=== PATIENT | female | born 1985 | race Caucasian/White ===

== ENCOUNTER 2018-01-11 16:16 | Outpatient (CLI) | payer MEDICARE ==
--- NOTE | 2018-01-11 17:51 | RAD ---
RADIOGRAPH LUMBAR SPINE 4 VIEWS: 01/11/18 HISTORY: 32-year-old female with M54.16 lumbar radiculopathy. COMPARISON: 04/28/16 TECHNIQUE: Standing AP, and three standing lateral views in flexion, extension, and neutral. FINDINGS: There are transitional levels at the thoracolumbar junction and lumbosacral junction. Review of prior CTA of the chest demonstrates that the last paired ribs are hypoplastic T12 ribs. Inferior to that l evel, there are four standard lumbar type vertebrae, followed by a sacralized L5 that has bilaterally enlarged (alarized) transverse processes, that are fused with the bilateral S1 sacral alae. There is a grade I anterolisthesis of L4 on L5 stabilized with bilateral pedicle screws. There are tiny metal lic markers for interbody graft at the moderately narrowed L4-5 disc space. There is a midline evangelista ctomy defect at L4-5. There is no instability between flexion and extension. The L5-S1 disc space is hypoplastic. The rest of the disc spaces are maintained. There is no scoliosis. The disc space narrow ing at L4-5 is new since the previous study of 04/28/16. The small amount of bilateral onlay bone chip s have now fused with each other, but they not have fused with the adjacent posterior elements. IMPRESSION: 1. Transitional levels at the thoracolumbar junction (bilaterally hypoplastic T12 ribs) and lumb osacral junction (sacralized L5). 2. Grade I spondylolisthesis at L4-5. 3. Status post laminectomy, posterior fusion with bilateral pedicle screws, and interbody cage ( without ankylosis), at L4-5. MARIANELA [] POS: [facility]
== END 2018-01-11 16:17 | disposition home or self-care (01) ==
LOC: TBSIIMAG 16:16
PROVIDERS: ATTEND Neurological Surgery
DX: M54.16 Radiculopathy, lumbar region (principal); M43.16 Spondylolisthesis, lumbar region; Z98.1 Arthrodesis status; Z98.890 Other specified postprocedural states
CPT/HCPCS: 72110

== ENCOUNTER 2018-07-22 01:51 | Emergency (ER) | payer MEDICARE ==
[2018-07-22 03:31] LABS: #Basophils 0.1 thou/uL (0.0-0.2); #Eosinphils 0.2 thou/uL (0.0-0.7); #Lymphocytes 1.8 thou/uL (1.20-3.40); #Monocytes 0.9 thou/uL (0.11-0.59); #Neutrophils 6.6 thou/uL (1.40-6.50); %Basophils 0.6 % (0.0-1.0); %Eosinophils 2.3 % (0.0-10.0); %Lymphocytes 19.2 % (21.0-51.0); %Monocytes 9.5 % (0.0-10.0); %Neutrophils 68.4 % (42.0-75.0); Hemoglobin 13.6 g/dL (12.0-16.0); Mean Corpuscular HGB CONC 32.7 g/dL (32.0-36.0); Mean Corpuscular Hemoglobin 30.8 pg (27.0-31.0); Mean Corpuscular Volume 94.1 fL (78.0-98.0); Platelet Count 224 thou/uL (130-400); RBC Distribution Width 11.1 % (11.5-14.5); White Blood Cell (WBC) Count 9.6 thou/uL (4.8-10.8)
[2018-07-22 03:36] LABS: BHCG - Serum Negative (NEGATIVE); Pregs Control Background? CLEAR/WHITE (CLR/WHITE); Pregs Control Bar Appear? YES (CONTROL BAR)
[2018-07-22 03:44] LABS: Bilirubin Negative (Negative); Blood, Urine Negative (Negative); Clarity TURBID (Clear); Glucose, Urine (Dipstick) Negative (Negative); Leukocyte Negative (Negative); Nitrite Negative (Negative); Protein, Urine (Dipstick) Negative (Neg-Trace); Specific Gravity, Urine 1.015 (1.002-1.036); Urobilinogen 0.2 mg/dL (0.2-1.0)
[2018-07-22 03:52] LABS: ALT (SGPT) 27 U/L (8-55); AST (SGOT) 22 U/L (5-34); Albumin 4.5 g/dL (3.5-5.0); Alkaline Phosphatase 45 U/L (40-150); Anion Gap 10 mmol/L (10-20); BUN (Urea Nitrogen) 16 mg/dL (7.0-18.7); Bilirubin, Total 0.5 mg/dL (0.2-1.2); Calc. Creatinine Clearance 0 mL/min (70-130); Carbon Dioxide 22 mmol/L (22-29); Chloride 111 mmol/L (98-107); Estimated GFR-MDRD Greater than 90; Globulin 3.6 g/dL (2.4-3.5); Glucose 84 mg/dL (70-105); Potassium 3.7 mmol/L (3.5-5.1); Protein, Total 8.1 g/dL (6.0-8.3); Sodium 139 mmol/L (136-145)
[2018-07-22] MEDS ORDERED: Ketorolac Tromethamine 30 MG/ML VIAL ONE (04:10)
[2018-07-22] MEDS ORDERED: Lorazepam 2 MG/ML VIAL ONE (04:29)
[2018-07-22] MEDS ORDERED: Morphine 4 MG/ML VIAL ONE (04:29)
--- NOTE | 2018-07-22 08:43 | CT ---
PRELIMINARY REPORT/[facility]/EMERGENTY AFTER-HOURS PROCEDURE CT Maxillofacial With Intravenous Contrast EXAM DATE/TIME: 07/22/2018 3:54 AM CLINICAL HISTORY: 32 years old, female; Pain; Jaw pain; Patient HX: Eval for possible abscess; PT reports she has saliv abena stones x 2 weeks but has gotten to the point that she cant move her face and pain is worse when w alking. States she has had them in the past and able to get them to come out on their own but this time she can not. TECHNIQUE: Axial computed tomography images of the face with intravenous contrast. Coronal and sagittal reformatted images were created and reviewed. COMPARISON: No relevant prior studies available. FINDINGS: Bones/joints: No acute fracture. Soft tissues: Unremarkable. No fluid collection identified. Orbits: No acute intraorbital abnormality. Sinuses: Unremarkable. Submandibular/Parotid glands: The left parotid gland is slightly enlarged and edematous appearing com pared to the right. There are multiple tiny low-attenuation lesions in the left parotid gland, larges t measuring 6 mm and fluid density without appreciable peripheral enhancement. The right parotid gland and submandibular glands are unremarkable. No stone or ductal dilatation is appre ciated. IMPRESSION: No salivary stone or ductal dilatation is identified. The left parotid gland is slightly enlarged and edematous-appearing compared to the right which may represent parotiditis. Small nonspecific low att enuation lesions are noted in the left parotid gland. No peripherally enhancing fluid collection is identified to indicate abscess. Thank you for allowing us to participate in the care of your patient. Dictated and Authenticated by: Rolando Leong MD 07/22/2018 4:23 AM Central Time ([place] & [place]) CT FACE WITH IV CONTRAST: Date: 07-22-18 PERFORMED ON EMERGENCY BASIS AT 0357 HOURS History: Facial pain. Salivary stones. Comparison: Prior exams on 04-17-17, 07-12-16 FINDINGS: I agree with the preliminary report by Dr. Leong from [facility]. Left parotid gland is enlarg ed and somewhat edematous with multiple small fluid density collections possibly representing cysts o r even small abscess. No obstructing stone is reliably demonstrated. The abnormal appearance of the l eft parotid gland has progressed significantly since the prior CT exams. Code QA POS: [facility]
[2018-07-22] MEDS ORDERED: ISOVUE-370 76%-LOCM 1 ML ONE (15:01)
[2018-07-22] MEDS ORDERED: Ondansetron PF 4 MG/2 ML Vial IVP PRN (19:48)
[2018-07-22] MEDS ORDERED: Acetaminophen/Codeine 30-300mg Tablet PO PRN (19:48)
[2018-07-22] MEDS ORDERED: Sodium Chloride 0.9% 1,000 ML IV SCH (19:48)
[2018-07-22] MEDS ORDERED: Guaifenesin DM 100-10/5 ML UDCUP PO PRN (19:48)
[2018-07-22] MEDS ORDERED: HYDROcodone/Acetaminophen 5/325 mg Tablet PO PRN (19:48)
[2018-07-22] MEDS ORDERED: Senokot S 8.6-50 MG TAB PO PRN (19:48)
[2018-07-22] MEDS ORDERED: Acetaminophen 325 MG TAB PO PRN (19:48)
[2018-07-22] MEDS ORDERED: Montelukast Sodium 10 mg Tablet PO SCH (21:00)
[2018-07-22] MEDS ORDERED: Famotidine 20 MG TAB PO SCH (21:00)
[2018-07-22] MEDS ORDERED: clonazePAM 0.5 MG TAB PO SCH (21:00)
[2018-07-22] MEDS ORDERED: Topiramate 100 MG TAB PO SCH (21:00)
[2018-07-22] MEDS ORDERED: Vancomycin HCl 1 GM in Premix Bag 1 BAG IVPB SCH (21:00)
[2018-07-22] MEDS ORDERED: Lacosamide 50 mg Tablet PO SCH (21:00)
[2018-07-22] MEDS ORDERED: Clindamycin/D5W 300 MG/50 ML BAG IVPB SCH (23:59)
[2018-07-23] MEDS ORDERED: Enoxaparin Sodium 30 MG/0.3 ML SYRINGE SC SCH (09:00)
[2018-07-23] MEDS ORDERED: Levothyroxine Sodium 75 MCG TAB PO SCH (09:00)
[2018-07-23] MEDS ORDERED: FLUoxetine HCl 20 MG CAP PO SCH (09:00)
== END 2018-07-22 05:26 | disposition home or self-care (01) ==
LOC: ERS 01:51
DX: R51 Headache (principal); G40.909 Epilepsy, unspecified, not intractable, without status epilepticus; E03.9 Hypothyroidism, unspecified; F41.9 Anxiety disorder, unspecified; F32.9 Major depressive disorder, single episode, unspecified; Z79.899 Other long term (current) drug therapy
CPT/HCPCS: 70487; 80053; 81003; 84703; 85025; J1885; J2060; J2270; J3490

== ENCOUNTER 2018-07-22 15:27 | Inpatient (IN) | payer MEDICARE ==
[2018-07-22] MEDS ORDERED: Morphine 4 MG/ML VIAL ONE (17:18)
[2018-07-22 17:19] LABS: #Eosinphils 0.1 thou/uL (0.0-0.7); #Lymphocytes 1.2 thou/uL (1.20-3.40); #Monocytes 0.8 thou/uL (0.11-0.59); %Basophils 0.3 % (0.0-1.0); %Eosinophils 1.3 % (0.0-10.0); %Lymphocytes 14.8 % (21.0-51.0); %Monocytes 9.5 % (0.0-10.0); %Neutrophils 74.2 % (42.0-75.0); Hemoglobin 11.5 g/dL (12.0-16.0); Mean Corpuscular HGB CONC 32.3 g/dL (32.0-36.0); Mean Corpuscular Hemoglobin 30.3 pg (27.0-31.0); Mean Corpuscular Volume 93.8 fL (78.0-98.0); Mean Platelet Volume 8.1 fL (7.4-10.4); Platelet Count 199 thou/uL (130-400); Red Blood Cell (RBC) Count 3.78 mill/uL (4.20-5.40)
[2018-07-22 17:28] LABS: BHCG - Serum Negative (NEGATIVE); Pregs Control Background? CLEAR/WHITE (CLR/WHITE); Pregs Control Bar Appear? YES (CONTROL BAR)
[2018-07-22 17:30] LABS: ALT (SGPT) 155 U/L (8-55); AST (SGOT) 138 U/L (5-34); Albumin 3.7 g/dL (3.5-5.0); Alkaline Phosphatase 48 U/L (40-150); Anion Gap 8 mmol/L (10-20); BUN (Urea Nitrogen) 10 mg/dL (7.0-18.7); Bilirubin, Total 0.3 mg/dL (0.2-1.2); Calc. Creatinine Clearance 0 mL/min (70-130); Calcium 9.1 mg/dL (7.8-10.44); Carbon Dioxide 21 mmol/L (22-29); Chloride 114 mmol/L (98-107); Estimated GFR-MDRD Greater than 90; Globulin 2.9 g/dL (2.4-3.5); Glucose 91 mg/dL (70-105); Potassium 3.9 mmol/L (3.5-5.1); Protein, Total 6.6 g/dL (6.0-8.3); Sodium 139 mmol/L (136-145)
[2018-07-22] MEDS ORDERED: Vancomycin HCl 750 MG in Sodium Chloride 0.9% 250 ML 250 ML IVPB SCH (18:00)
[2018-07-22] MEDS ORDERED: Clindamycin/D5W 600 MG in Premix Bag 1 BAG IVPB SCH (18:00)
[2018-07-22] MEDS ORDERED: Acetaminophen 325 MG TAB PO PRN ×2 (19:37→22:12)
[2018-07-22] MEDS ORDERED: Ondansetron PF 4 MG/2 ML Vial IVP PRN ×2 (19:37→22:11)
[2018-07-22] MEDS ORDERED: Ondansetron ODT 4 MG TAB SL PRN (19:37)
[2018-07-22] MEDS ORDERED: diphenhydrAMINE 50 MG/ML VIAL IVP PRN (19:39)
[2018-07-22] MEDS ORDERED: diphenhydrAMINE 50 MG/ML VIAL IVP SCH (19:45)
[2018-07-22 20:07] VITALS: BMI 16.7
[2018-07-22] MEDS: Famotidine/PF 20 mg/2ml Vial SLOW IVP SCH (21:37)
[2018-07-22] MEDS ORDERED: Guaifenesin DM 100-10/5 ML UDCUP PO PRN (22:08)
[2018-07-22] MEDS ORDERED: Senokot 8.6 MG TAB PO PRN (22:11)
[2018-07-22] MEDS ORDERED: clonazePAM 1 MG TAB PO SCH (22:15)
[2018-07-22] MEDS ORDERED: Montelukast Sodium 10 mg Tablet PO SCH (22:15)
[2018-07-22] MEDS ORDERED: Lacosamide 50 mg Tablet PO SCH (22:15)
[2018-07-22] MEDS ORDERED: Famotidine 20 MG TAB PO SCH (22:30)
[2018-07-22] MEDS ORDERED: Topiramate 100 MG TAB PO SCH ×2 (22:30)
[2018-07-22] MEDS: Acetaminophen/Codeine 30-300mg Tablet PO PRN (22:47)
[2018-07-22] MEDS: Sodium Chloride 0.9% 1,000 ML IV SCH (22:50)
[2018-07-23] MEDS: Clindamycin/D5W 300 MG in Premix Bag 1 BAG IVPB SCH ×4 (00:55→17:51)
--- NOTE | 2018-07-23 04:20 | HP ---
REASON FOR ADMISSION: Left parotitis. HISTORY OF PRESENT ILLNESS: The patient gives history of swelling in the left parotid area from the last two weeks. This has been progressively getting worse and has become painful. She in fact came to emergency room early in the morning. She has had a CAT scan done and was sent home after pain medications and antibiotics. The patient could not tolerate the pain and came back to the emergency room. She also mentions that her swelling has gotten worse. She feels like a Q-tip is stuck in her ear. She also mentions that she has had history of salivary gland stones and has been advised to drink/chew on lemon and drink lemon juice to help with the secretion from the salivary glands. The patient tried all those home remedies at home and this has not helped. She also tried some heating pads which has not helped her as well. The patient in fact states that she got morphine, Ativan, and Toradol, all of which wore off and the pain got worse after she went home. 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 Daryl disease, tonsillectomy, adenoidectomy, cholecystectomy, tubal ligation, spinal fusion surgery for L4-5 in 2016. Partial hysterectomy, lithotripsy. CURRENT MEDICATIONS: The patient is on Synthroid 75 mcg p.o. daily, Vimpat 100 mg p.o. twice daily, topiramate 200 mg p.o. twice daily, Singulair 10 mg p.o. daily, Klonopin 1 mg p.o. at bedtime, fluoxetine 20 mg p.o. daily. ALLERGIES: Patient has got multiple allergies including CEPHALOSPORINS, DEXAMETHASONE, DILANTIN, KEPPRA, LATEX, PENICILLIN, SULFA. PERSONAL HISTORY: Does not abuse alcohol or drugs. No history of smoking. FAMILY HISTORY: Mother has history of hypertension and is a prediabetic. She does not know much about her biological father. CODE STATUS: FULL. Power of corporate attorney is her stepdad Mr. Emre Griffin. REVIEW OF SYSTEMS: The following complete review of systems was negative, unless otherwise mentioned in the HPI or below: Constitutional: Weight loss or gain, ability to conduct usual activities. Skin: Rash, itching. Eyes: Double vision, pain. ENT/Mouth: Nose bleeding, neck stiffness, pain, tenderness. Cardiovascular: Palpitations, dyspnea on exertion, orthopnea. Respiratory: Shortness of breath, wheezing, cough, hemoptysis, fever or night sweats. Gastrointestinal: Poor appetite, abdominal pain, heartburn, nausea, vomiting, constipation, or diarrhea. Genitourinary: Urgency, frequency, dysuria, nocturia. Musculoskeletal: Pain, swelling. Neurologic/Psychiatric: Anxiety, depression. Allergy/Immunologic: Skin rash, bleeding tendency. PHYSICAL EXAMINATION: GENERAL: The patient is a 32-year-old female who is currently not in any acute distress. VITAL SIGNS: Blood pressure 102/74, pulse 88 per minute, respiratory rate 16 per minute, temperature 99.2 degrees Fahrenheit, saturating 100% on room air. FACE AND NECK: Supple, no elevated JVD. Patient has left parotid area edema and is extremely tender to touch. No obvious boggy mass or drainage seen. HEENT: Eyes: Extraocular muscles intact. Pupils reacting to light. Oral cavity mucous membranes are dry. CARDIOVASCULAR: S1, S2 heard. Regular rhythm. RESPIRATORY: Air entry 2+ bilateral. No rales or rhonchi. ABDOMEN: Soft, bowel sounds heard. No tenderness, rigidity, or guarding. EXTREMITIES: No peripheral edema or calf tenderness. VASCULAR SYSTEM: Peripheral pulses 2+ bilateral. No ischemic ulcerations or gangrene. CENTRAL NERVOUS SYSTEM: No gross focal deficits noted. Patient is alert, awake , oriented well. PSYCHIATRIC: The patient's mood is euthymic. No hallucinations or delusions. LABORATORY AND X-RAY FINDINGS: White count of 8, H&H 11 and 35, platelet count 199 with 74% neutrophils. Serum bicarbonate 21, BUN 10, creatinine 0.5, AST 138 , ALT 155, total bilirubin 0.3, alkaline phosphatase is 48. Serum test is negative. Facial bone CAT scan done shows no salivary stone or ductal dilatation, left parotid gland is slightly enlarged and edematous, may represent parotitis. No peripherally enhancing fluid collection is identified to indicate abscess. Patient also has multiple small fluid density collections , possibly representing cysts or even small abscess. CLINICAL IMPRESSION AND PLAN: The patient will be admitted to medical floor for left parotitis. She will be on vancomycin and clindamycin. Morphine p.r.n. for pain. We will also place her on Motrin 400 mg p.o. 3 times daily. We will continue her home dose of Vimpat, topiramate, Synthroid, Singulair, Klonopin, and fluoxetine as before. We will consult Dr. Adair Beebe who is production control clerk for ENT. [facility]
[2018-07-23] MEDS: Acetaminophen/Codeine 30-300mg Tablet PO PRN (04:24)
[2018-07-23 04:59] LABS: #Eosinphils 0.1 thou/uL (0.0-0.7); #Lymphocytes 1.6 thou/uL (1.20-3.40); #Monocytes 0.8 thou/uL (0.11-0.59); #Neutrophils 3.2 thou/uL (1.40-6.50); %Basophils 0.7 % (0.0-1.0); %Eosinophils 1.9 % (0.0-10.0); %Lymphocytes 27.6 % (21.0-51.0); %Monocytes 13.4 % (0.0-10.0); %Neutrophils 56.4 % (42.0-75.0); Hemoglobin 10.9 g/dL (12.0-16.0); Mean Corpuscular HGB CONC 31.9 g/dL (32.0-36.0); Mean Corpuscular Hemoglobin 30.1 pg (27.0-31.0); Mean Corpuscular Volume 94.6 fL (78.0-98.0); Mean Platelet Volume 8.2 fL (7.4-10.4); Platelet Count 184 thou/uL (130-400); Red Blood Cell (RBC) Count 3.62 mill/uL (4.20-5.40); White Blood Cell (WBC) Count 5.7 thou/uL (4.8-10.8)
[2018-07-23 05:03] LABS: Anion Gap 7 mmol/L (10-20); BUN (Urea Nitrogen) 8 mg/dL (7.0-18.7); Calc. Creatinine Clearance 103 mL/min (70-130); Calcium 9.1 mg/dL (7.8-10.44); Carbon Dioxide 19 mmol/L (22-29); Chloride 114 mmol/L (98-107); Estimated GFR-MDRD Greater than 90; Glucose 66 mg/dL (70-105); Potassium 3.6 mmol/L (3.5-5.1); Sodium 136 mmol/L (136-145)
[2018-07-23] MEDS: Morphine 4 MG/ML VIAL SLOW IVP PRN ×4 (05:31→20:43)
[2018-07-23] MEDS ORDERED: Levothyroxine Sodium 75 MCG TAB PO SCH (06:00)
[2018-07-23] MEDS: Famotidine 20 MG TAB PO SCH ×2 (08:58→20:41)
[2018-07-23] MEDS: Enoxaparin Sodium 30 MG/0.3 ML SYRINGE SC SCH (08:58)
[2018-07-23] MEDS: Famotidine/PF 20 mg/2ml Vial SLOW IVP SCH (08:59)
[2018-07-23] MEDS ORDERED: FLUoxetine HCl 20 MG CAP PO SCH (09:00)
[2018-07-23] MEDS: Topiramate 100 MG TAB PO SCH ×2 (09:01→20:42)
[2018-07-23] MEDS: Lacosamide 50 mg Tablet PO SCH ×2 (09:36→20:55)
--- NOTE | 2018-07-23 11:09 | PDOC.PN ---
- Subjective Encounter Start Date: 07/23/18 Encounter Start Time: 11:07 Subjective: left facial pain persists - Objective Resuscitation Status: Resuscitation Status FULL:Full Resuscitation MAR Reviewed: Yes Vital Signs & Weight: Vital Signs (12 hours) Temp Pulse Resp BP Pulse Ox 07/23/18 08:00 98.0 F 83 16 101/56 L 100 07/23/18 04:00 98.4 F 87 16 97/55 L 97 07/22/18 23:27 99.3 F 82 16 90/55 L 96 Weight Weight 94 lb 4 oz I&O: 07/22/18 07/23/18 07/24/18 06:59 06:59 06:59 Intake Total 440 Balance 440 Result Diagrams: 07/23/18 04:17 07/23/18 04:17 Phys Exam - Physical Examination 3cm indurated L parotid Respiratory: no wheezing Cardiovascular: RRR, no significant murmur Gastrointestinal: soft, positive bowel sounds Musculoskeletal: no edema Dx/Plan (1) Acute parotitis Code(s): K11.21 - ACUTE SIALOADENITIS Status: Acute (2) Hypothyroidism Code(s): E03.9 - HYPOTHYROIDISM, UNSPECIFIED Status: Acute (3) Seizure disorder Code(s): G40.909 - EPILEPSY, UNSP, NOT INTRACTABLE, WITHOUT STATUS EPILEPTICUS Status: Chronic - Plan cont iv antibx pending ENT consultation -: selected home meds * .
[2018-07-23] MEDS: Ketorolac Tromethamine 30 MG/ML VIAL IVP PRN (18:31)
[2018-07-23] MEDS: Gabapentin 300 MG CAP PO SCH (20:41)
[2018-07-23] MEDS: Lorazepam 1 MG TAB PO SCH (20:42)
[2018-07-23] MEDS ORDERED: Lacosamide 50 mg Tablet PO SCH (21:00)
[2018-07-23] MEDS ORDERED: clonazePAM 1 MG TAB PO SCH (21:00)
[2018-07-23] MEDS ORDERED: Topiramate 100 MG TAB PO SCH (21:00)
[2018-07-23] MEDS ORDERED: tiZANidine HCl 4 MG TAB PO PRN (21:00)
[2018-07-23] MEDS ORDERED: Montelukast Sodium 10 mg Tablet PO SCH (21:00)
[2018-07-23] MEDS ORDERED: Gabapentin 300 MG CAP PO SCH (21:00)
[2018-07-24] MEDS: Clindamycin/D5W 300 MG in Premix Bag 1 BAG IVPB SCH ×3 (00:24→12:30)
[2018-07-24] MEDS: Morphine 4 MG/ML VIAL SLOW IVP PRN ×3 (00:53→10:25)
[2018-07-24] MEDS: Sodium Chloride 0.9% 1,000 ML IV SCH (00:54)
[2018-07-24] MEDS: HYDROcodone/Acetaminophen 5/325 mg Tablet PO PRN ×2 (04:23→09:09)
[2018-07-24] MEDS: Ketorolac Tromethamine 30 MG/ML VIAL IVP PRN ×2 (04:29→12:53)
[2018-07-24 05:08] LABS: #Eosinphils 0.1 thou/uL (0.0-0.7); #Lymphocytes 1.7 thou/uL (1.20-3.40); #Monocytes 0.8 thou/uL (0.11-0.59); #Neutrophils 3.1 thou/uL (1.40-6.50); %Basophils 0.6 % (0.0-1.0); %Eosinophils 2.4 % (0.0-10.0); %Lymphocytes 29.3 % (21.0-51.0); %Neutrophils 54.7 % (42.0-75.0); Hemoglobin 10.8 g/dL (12.0-16.0); Mean Corpuscular HGB CONC 32.3 g/dL (32.0-36.0); Mean Corpuscular Hemoglobin 30.4 pg (27.0-31.0); Mean Corpuscular Volume 94.2 fL (78.0-98.0); Mean Platelet Volume 7.9 fL (7.4-10.4); Platelet Count 188 thou/uL (130-400); RBC Distribution Width 10.9 % (11.5-14.5); Red Blood Cell (RBC) Count 3.54 mill/uL (4.20-5.40); White Blood Cell (WBC) Count 5.8 thou/uL (4.8-10.8)
[2018-07-24 05:23] LABS: Anion Gap 9 mmol/L (10-20); BUN (Urea Nitrogen) 9 mg/dL (7.0-18.7); Calc. Creatinine Clearance 96 mL/min (70-130); Carbon Dioxide 17 mmol/L (22-29); Chloride 116 mmol/L (98-107); Estimated GFR-MDRD Greater than 90; Glucose 85 mg/dL (70-105); Potassium 3.9 mmol/L (3.5-5.1); Sodium 138 mmol/L (136-145)
[2018-07-24] MEDS ORDERED: Levothyroxine Sodium 75 MCG TAB PO SCH (06:00)
[2018-07-24 08:46] VITALS: BP 84/51; TEMP 98.9
[2018-07-24] MEDS ORDERED: FLUoxetine HCl 20 MG CAP PO SCH (09:00)
[2018-07-24] MEDS: Lorazepam 1 MG TAB PO SCH (09:10)
[2018-07-24] MEDS: Gabapentin 300 MG CAP PO SCH (09:10)
[2018-07-24] MEDS: Topiramate 100 MG TAB PO SCH (09:10)
[2018-07-24] MEDS: Famotidine 20 MG TAB PO SCH (09:10)
[2018-07-24] MEDS: Enoxaparin Sodium 30 MG/0.3 ML SYRINGE SC SCH ×2 (09:10→09:13)
[2018-07-24] MEDS: Lacosamide 50 mg Tablet PO SCH (10:25)
--- NOTE | 2018-07-24 10:54 | PDOC.PN ---
- Subjective Encounter Start Date: 07/24/18 Encounter Start Time: 10:53 Subjective: still complains of sigificant pain, stays in bed all day - Objective Resuscitation Status: Resuscitation Status FULL:Full Resuscitation MAR Reviewed: Yes Vital Signs & Weight: Vital Signs (12 hours) Temp Pulse Resp BP BP Pulse Ox 07/24/18 08:00 98.9 F 92 16 84/51 L 100 07/24/18 03:49 98.7 F 72 16 89/51 L 100 Weight Admit Weight 94 lb 4 oz Weight 94 lb 4 oz I&O: 07/23/18 07/24/18 07/25/18 06:59 06:59 06:59 Intake Total 440 2572.0 Balance 440 2572.0 Result Diagrams: 07/24/18 04:46 07/24/18 04:46 Phys Exam - Physical Examination Neck: no JVD decreasd induration over L parotid Respiratory: clear to auscultation bilateral Cardiovascular: RRR, no significant murmur Gastrointestinal: soft, positive bowel sounds Musculoskeletal: no edema Dx/Plan (1) Acute parotitis Code(s): K11.21 - ACUTE SIALOADENITIS Status: Acute (2) Hypothyroidism Code(s): E03.9 - HYPOTHYROIDISM, UNSPECIFIED Status: Acute (3) Seizure disorder Code(s): G40.909 - EPILEPSY, UNSP, NOT INTRACTABLE, WITHOUT STATUS EPILEPTICUS Status: Chronic - Plan cont iv antibx, awaiting ENT consolt * .
--- NOTE | 2018-07-24 13:47 | DIS ---
TRANSFER OF CARE NOTE PRIMARY CARE PROVIDER: Dr. Jeanie Loya DATE OF ADMISSION: 07/22/2018 DATE OF DISCHARGE: 07/24/2018 DISCHARGE DISPOSITION: Home. FINAL DIAGNOSES: 1. Acute parotitis left parotid gland. 2. Hypothyroidism on therapy. 3. Seizure disorder, on therapy. DISCHARGE MEDICATIONS: Cleocin 300 mg p.o. q.6 hours x7 days, Synthroid 75 mcg a day, lorazepam 1 mg twice a day, Topamax 100 mg twice a day, Vimpat 100 mg twice a day, fluoxetine 20 mg a day, tizanidi ne 4 mg p.o. q.8 h p.r.n., Tylenol with codeine 1-2 tablets every 4 hours as needed for pain, gabapen tin 300 mg p.o. t.i.d. ALLERGIES: OMNICEF, DECADRON, KEPPRA, PENICILLINS, DILANTIN, SULFA, VANCOMYCIN. She has been on van comycin. PENDING AT TIME OF DISCHARGE: Nothing. CODE STATUS: FULL. DIET: As tolerated. ACTIVITY: Ambulation as tolerated. HOSPITAL COURSE: The patient placed in the hospital after presenting in the emergency room with comp laints of severe left jaw pain on CT. She was found to have evidence of left parotitis, no stone was seen. Her laboratory was remarkably unremarkable. White count 8.05, 5.7, 5.8, hemoglobin 11.5, 10. 9, 10.8, platelet count 199,000, 184,000 188,000. Comp metabolic profile showed some mild elevations of transaminases 138, 155, chloride 114, CO2 21, creatinine 0.59. The patient was treated with IV antibiotics. Her parotid which was initially firmly indurated and ab out 3 cm in diameter, at the time of discharge it was remarkably softer, less in duration. She was s een by Dr. Bates who recommended discharge on oral clindamycin, hot packs and massage. This is prob ably not going to happen as she is adamant and refused to let anybody touch it. Palpation was done b y myself was extremely gentle. She has been told to see Dr. Loya in 1 week for followup. Prescrip tion was written for the Cleocin. PROCEDURES: No procedures were done. CONSULTATION: She was seen in consultation by Dr. Ovidio Bates.
--- NOTE | 2018-07-24 15:01 | PDOC.EVN ---
Event Note - Event Note Event Note: patient experieced acute panic attack poost DC. she spoke with her mother on fone, and calmed down. sister is here to take her home.
--- NOTE | 2018-07-24 15:16 | PDOC.EVN ---
Event Note - Event Note Event Note: discussion with , palliative care. he wishes her to be DNR. she is not mentally competent. will comply.
== END 2018-07-24 15:04 | disposition home or self-care (01) | DRG 155 ==
LOC: ERS 15:27 → ONC 19:15
PROVIDERS: ADMIT Internal Medicine; ATTEND Internal Medicine
DX: K11.21 Acute sialoadenitis (principal); E27.1 Primary adrenocortical insufficiency; A69.20 Lyme disease, unspecified; E03.9 Hypothyroidism, unspecified; G40.909 Epilepsy, unspecified, not intractable, without status epilepticus; Z66 Do not resuscitate; Z51.5 Encounter for palliative care; F41.0 Panic disorder [episodic paroxysmal anxiety]; F41.9 Anxiety disorder, unspecified; F32.9 Major depressive disorder, single episode, unspecified
CPT/HCPCS: 36415; 70487; 80048; 80053; 81003; 84703; 85025; 96361; 96374; 96375; J1200; J1650; J1885; J2060; J2270; J3370; J3490; J7050; S0028

== ENCOUNTER 2018-07-25 06:51 | Day surgery (SDC) | payer MEDICARE ==
[~2018-07-25 06:51] MED LIST: Prevnar 13-Val Conj/PF 0.5 ML SYRINGE IM ONE
[2018-07-25 07:27] VITALS: BMI 16.0
--- NOTE | 2018-07-25 09:43 | RAD ---
LUMBAR SPINE MYELOGRAM INDICATION: Radiculopathy of the lumbar region, low back pain. Prior low back surgery. RADIATION EXPOSURE DATA: 0.1 minutes intermittent fluoroscopy, 8 mGy*^m2. PROCEDURE: After informed consent had been obtained, the patient was escorted to the interventional suite and pl aced on the procedural table. [employer] imaging was performed. The patient was placed into a prone posi tion. Skin on the low back was then prepped and draped in the standard sterile fashion and topical a nd regional soft tissue anesthesia was achieved with 1% lidocaine and sodium bicarbonate. L3-4 left interlaminar approach was selected, and a 22 gauge needle was uneventfully advanced into the thecal sac with clear color CSF. Subsequently, 9 cc [id number]-M200 was instilled into the thecal sac under harish l time fluoroscopy. Appropriate opacification of thecal sac demonstrated with imaging stored for con firmation. The needle was then removed from the patient. The patient tolerated the procedure well a nd was then transferred to CT to undergo subsequent myelogram. Reference separate report for full de tails. IMPRESSION: Technically successful lumbar myelogram as detailed above. POS: [facility]
--- NOTE | 2018-07-25 10:00 | CT ---
CT LUMBAR SPINE MYELOGRAM CT LUMBAR SPINE WITH CONTRAST: CLINICAL HISTORY: Lumbar radiculopathy, low back pain, and prior low back surgery. FINDINGS: For the numbering scheme of this exam, the L5 vertebra is deemed sacralized as there is a transitiona l segment and this is the location of the ileal lumbar ligaments. There is evidence of posterior met allic fusion at L4-5 with bilateral pedicle screws and bilateral vertical interconnecting rods and an intradiskal space device. There is grade I spondylolisthesis involving L4-5. Conus medullaris term inates at the T12-L1 level. There is no significant disk pathology of T12-L1, L1-2, L2-3, or L3-4 levels. No significant central canal or foraminal compromise at these levels. L4-5: As described above, there is grade I spondylolisthesis. There is evidence of prior posterior decompression without central canal stenosis. No significant foraminal stenosis. L5-S1: Rudimentary disk space is present. No high-grade compromise of the terminal thecal sac or of the bilateral neural foramen. There is no evidence of significant perihardware lucency. IMPRESSION: Postoperative fusion at L4-5, with grade I L4-5 level spondylolisthesis. POS: [facility]
== END 2018-07-25 09:50 | disposition home or self-care (01) ==
LOC: RAD 06:51
PROVIDERS: ATTEND Specialist
PROC: B01B1ZZ Fluoroscopy of Spinal Cord using Low Osmolar Contrast (ICD-10-PCS; principal; 2018-07-25)
DX: M43.16 Spondylolisthesis, lumbar region (principal); M47.26 Other spondylosis with radiculopathy, lumbar region; M47.817 Spondylosis without myelopathy or radiculopathy, lumbosacral region; A69.20 Lyme disease, unspecified; G43.909 Migraine, unspecified, not intractable, without status migrainosus; E27.1 Primary adrenocortical insufficiency; I95.89 Other hypotension; E03.9 Hypothyroidism, unspecified; Z79.899 Other long term (current) drug therapy; Z88.0 Allergy status to penicillin; Z88.1 Allergy status to other antibiotic agents; Z88.2 Allergy status to sulfonamides; Z88.8 Allergy status to other drugs, medicaments and biological substances; Z91.030 Bee allergy status; Z91.048 Other nonmedicinal substance allergy status; Z98.1 Arthrodesis status
CPT/HCPCS: 62304; 72132

== ENCOUNTER 2018-08-06 10:30 | Outpatient (CLI) | payer MEDICARE ==
--- NOTE | 2018-08-06 11:49 | RAD ---
LUMBAR SPINE FOUR VIEWS: History: 33-year-old female history of lumbar radiculopathy. Comparison: FINDINGS: Transitional vertebra at the lumbosacral level. Post op laminectomy and pedicle screw placement umanzor es and intradiscal prosthesis at L4-5. Stable grade I anterolisthesis of L4 on L5 without evidence fo r abnormal translation between flexion and extension. IMPRESSION: Stable post-operative changes at L4-5 with stable anterolisthesis without abnormal translation betwee n flexion and extension, unchanged from prior study. POS: [facility]
--- NOTE | 2018-08-06 12:49 | ULT ---
ABDOMEN ULTRASOUND: HISTORY: Weight loss. Elevated LFTs. FINDINGS: The liver, spleen, pancreas, kidneys, and visualized portions of the aorta and IVC appear normal. Th e patient is post cholecystectomy. The common duct measures 3 mm in diameter. No free fluid is seen . IMPRESSION: Status post cholecystectomy, otherwise unremarkable examination. POS: [facility]
--- NOTE | 2018-08-06 12:53 | RAD ---
PA AND LATERAL CHEST: HISTORY: Weight loss. COMPARISON: 04/17/2017 FINDINGS: The cardiomediastinum is normal. The lung are well expanded and clear. The bony thorax is normal. IMPRESSION: Normal examination. POS: [facility]
== END 2018-08-06 10:31 | disposition home or self-care (01) ==
LOC: BICULT 10:30
PROVIDERS: ATTEND Internal Medicine
DX: M54.16 Radiculopathy, lumbar region (principal); R63.4 Abnormal weight loss; R74.0 Nonspecific elevation of levels of transaminase and lactic acid dehydrogenase [LDH]; M43.16 Spondylolisthesis, lumbar region; Z98.890 Other specified postprocedural states; Z90.49 Acquired absence of other specified parts of digestive tract
CPT/HCPCS: 71046; 72120; 76700

== ENCOUNTER 2018-08-06 16:30 | Outpatient (CLI) | payer MEDICARE ==
--- NOTE | 2018-08-06 19:03 | RAD ---
THREE VIEWS LEFT FOOT: 08/06/18 INDICATION: Left foot injury with pain. FINDINGS: No fracture or dislocation. There is soft tissue prominence overlying the fifth MTP joint. Correlate clinically. IMPRESSION: No acute osseous abnormality of the left foot. POS: [facility]
== END 2018-08-06 16:31 | disposition home or self-care (01) ==
LOC: RAD 16:30
PROVIDERS: ATTEND Physician Assistant
DX: S99.922A Unspecified injury of left foot, initial encounter (principal)

== ENCOUNTER 2018-08-24 01:31 | Emergency (ER) | payer MEDICARE ==
[2018-08-24] MEDS ORDERED: predniSONE 20 MG TAB ONE (01:54)
== END 2018-08-24 03:25 | disposition home or self-care (01) ==
LOC: ERS 01:31
DX: L50.0 Allergic urticaria (principal); E03.9 Hypothyroidism, unspecified; G40.909 Epilepsy, unspecified, not intractable, without status epilepticus; G43.909 Migraine, unspecified, not intractable, without status migrainosus; F41.9 Anxiety disorder, unspecified; F32.9 Major depressive disorder, single episode, unspecified; Z79.899 Other long term (current) drug therapy; E27.40 Unspecified adrenocortical insufficiency
CPT/HCPCS: 96360; J7506

== ENCOUNTER 2018-09-08 19:03 | Emergency (ER) | payer MEDICARE | END 2018-09-08 20:56 | disposition home or self-care (01) | LOC: SCSER 19:03 | DX: J01.90 Acute sinusitis, unspecified (principal); R59.0 Localized enlarged lymph nodes; E03.9 Hypothyroidism, unspecified; G40.909 Epilepsy, unspecified, not intractable, without status epilepticus; G43.909 Migraine, unspecified, not intractable, without status migrainosus; F41.9 Anxiety disorder, unspecified; F32.9 Major depressive disorder, single episode, unspecified; Z79.899 Other long term (current) drug therapy | CPT/HCPCS: 87081; 87430; 99283 ==

== ENCOUNTER 2018-10-22 15:58 | Outpatient (CLI) | payer MEDICARE ==
[~2018-10-22 15:58] MED LIST changes: +ISOVUE-370 76%-LOCM 1 ML ONE; -Prevnar 13-Val Conj/PF 0.5 ML SYRINGE IM ONE
--- NOTE | 2018-10-22 17:59 | CT ---
CT SOFT TISSUE NECK 10/22/18 HISTORY: Left neck swelling off and on for months. Mass of parotid, K11.9. Contrast enhanced CT images of the soft tissue of the neck obtained. Comparison made to previous exam from 07/12/16. Contrast enhanced CT images of the soft tissue neck obtained. FINDINGS/IMPRESSION: Previously noted right glottic pharyngeal mucosal based areas of soft tissue asymmetry is no longer s een. The pharyngeal mucosal space appears to be symmetric bilaterally. The nasopharynx and oropharynx are unremarkable. No significant evidence of lymphadenopathy seen. The left parotid gland is unremarkable. Minimal prominence seen in the right and left jugular digastric nodes. Right jugular digastric node m easures 6.0 x 8.0 mm while left measures 8.0 x 6.0 mm. No significant evidence of necrotic lymph nodes seen. The anterior mediastinum in the retrosternal region appears to be somewhat dense. Thymic or anterior sternal neoplasm cannot be excluded. The thyroid lobes are unremarkable. Possible area of increased density in the anterior mediastinum. Mediastinal pathology cannot be exclu ded. POS: [facility]
== END 2018-10-22 15:59 | disposition home or self-care (01) ==
LOC: BICCT 15:58
PROVIDERS: ATTEND Specialist
DX: K11.9 Disease of salivary gland, unspecified (principal)
CPT/HCPCS: 70491

== ENCOUNTER 2018-10-26 17:56 | Emergency (ER) | payer MEDICARE ==
[2018-10-26] MEDS ORDERED: Ondansetron PF 4 MG/2 ML Vial ONE (18:35)
[2018-10-26] MEDS ORDERED: Metoclopramide HCl 10 MG/2 ML VIAL ONE (19:08)
[2018-10-26] MEDS ORDERED: Ketorolac Tromethamine 30 MG/ML VIAL ONE (19:08)
[2018-10-26] MEDS ORDERED: diphenhydrAMINE 50 MG/ML VIAL ONE (19:12)
== END 2018-10-26 21:23 | disposition home or self-care (01) ==
LOC: ERS 17:56
DX: G43.909 Migraine, unspecified, not intractable, without status migrainosus (principal); E03.9 Hypothyroidism, unspecified; G40.909 Epilepsy, unspecified, not intractable, without status epilepticus; I95.9 Hypotension, unspecified; E05.00 Thyrotoxicosis with diffuse goiter without thyrotoxic crisis or storm; F41.9 Anxiety disorder, unspecified; F32.9 Major depressive disorder, single episode, unspecified; Z79.899 Other long term (current) drug therapy
CPT/HCPCS: 96365; 96366; 96375; J1200; J1885; J2405; J2765

== ENCOUNTER 2018-11-05 10:02 | Outpatient (CLI) | payer MEDICARE ==
--- NOTE | 2018-11-05 12:43 | CT ---
CT CHEST WITH CONTRAST: HISTORY: R93.89, abnormal CT scan. COMPARISON: CT neck from 10/22/2018. FINDINGS: The lungs are clear. No pneumothorax. No effusion. No suspicious pulmonary nodule. There is a 3 mm nodule at the lateral base of the right lower lobe with a pleural tail, likely chroni c. No effusion or pneumothorax. The thyroid is unremarkable. There is residual thymic tissue in the an terior mediastinum. No abnormal thymic mass. Pulmonary trunk size is normal. Aortic size is normal . The left upper lobe pulmonary veins drain to an accessory SVC, which then drains into the brachioc ephalic vein, into the right-sided SVC, and into the right heart circulation. Limited evaluation of the upper abdomen is unremarkable. No suspicious osteolytic or osteoblastic le sions. No displaced rib fracture. IMPRESSION: Normal examination of the chest. Corresponding to the recent neck CT findings is normal residual thy vernell tissue, anterior mediastinum. POS: [facility]
== END 2018-11-05 10:03 | disposition home or self-care (01) ==
LOC: BICCT 10:02
PROVIDERS: ATTEND Internal Medicine
DX: R93.89 Abnormal findings on diagnostic imaging of other specified body structures (principal)
CPT/HCPCS: 71260; Q9966

== ENCOUNTER 2018-11-07 11:34 | Day surgery (SDC) | payer MEDICARE ==
[2018-11-06 11:27] VITALS: BMI 16.1
[2018-11-07] MEDS ORDERED: Fentanyl 100 MCG/2 ML VIAL ONE (13:30)
[2018-11-07] MEDS ORDERED: Bupivacaine HCl 0.5%/Epinephrine 1:200,000/PF 30 ml Vial ONE (13:54)
[2018-11-07] MEDS ORDERED: Levofloxacin 500 mg/D5W 100 ml Premix Bag ONE (14:11)
[2018-11-07] MEDS ORDERED: Propofol 500 MG/50 ML VIAL ONE (14:15)
[2018-11-07] MEDS ORDERED: PROPOFOL 20 ML ONE (15:26)
[2018-11-07] MEDS ORDERED: PROPOFOL 200 MG/20 ML VIAL ONE (16:06)
--- NOTE | 2018-11-07 19:29 | RAD ---
SINGLE SUBMITTED IMAGE FROM AN INTRAOPERATIVE C-ARM EVALUATION FOR PAIN PUMP INSTALLATION. 11/07/18 INDICATION: Dorsal column stimulator installation. FINDINGS: Dorsal column stimulator projects up to the reported T7 vertebral level. Total fluoroscopic time was 2 minutes and 8 seconds. Total exposure was 13 mGy. IMPRESSION: Intraoperative C-arm use for dorsal column stimulator placement. POS: [facility]
--- NOTE | 2018-11-07 22:18 | OP ---
DATE OF PROCEDURE: 11/07/2018 PREOPERATIVE DIAGNOSES: 1. Post-laminectomy syndrome. 2. Chronic pain syndrome. 3. Lumbar radiculopathy. POSTOPERATIVE DIAGNOSES: 1. Post-laminectomy syndrome. 2. Chronic pain syndrome. 3. Lumbar radiculopathy. PROCEDURE PERFORMED: 1. Spinal cord stimulator generator implant. 2. Spinal cord stimulator lead implant x2. 3. Fluoroscopy. 4. Programming. ESTIMATED BLOOD LOSS: Minimal. SUMMARY OF PROCEDURE: The patient was taken to the procedure room, placed prone on the procedure room table. A time-out was performed using ChloraPrep. We prepped the back and sterile drapes were applied. Using fluoroscopy, we located the interspace of L1-L2, approximately one vertebral body lower than this we made a 2 cm vertical incision after anesthetizing the skin with 0.5% Marcaine with epinephrine. The incision was opened, then blunt dissected down to fascia. We were able to separate the fascia easily. A 14-gauge supplied Touhy needle was used in a paramedian technique to engage in the ligament of L1-L2. Once in the ligament, we used loss of resistance to air to gain access to the epidural space. This aspiration was negative for heme or CSF. We threaded an 8-contact lead up the midline dorsal epidural space to the bottom of T7. We placed a 2nd lead on the contralateral side in the exact same fashion using the same technique to have two parallel leads at the bottom of T7. Stimulation was performed and the patient noted paresthesia in all pain areas. [place] were removed taking care not to move the leads. Anchors were placed over the leads and these were clicked to affix them to the lead. They were affixed to the fascia layer with 2-0 silk suture x2. Each tug test revealed that these did not move. Under continuous fluoro, we created a tension relief loop with 2-0 silk suture x2 in the incision pocket. We then anesthetized the lower left buttock to make a horizontal battery incision. We made an incision and blunt dissected this down the Steph's fascia. Once in the Steph's fascia, this was dissected inferiorly and superiorly to make a pocket, a tunneling device was used to make a tunnel between the two incisions. The leads were then threaded through the tunneling device and brought to the battery pocket. These were connected to the battery and torqued down. All impedances were good. We put the battery inside the pocket, which fit easily. We then approximated all fascia layers with 2-0 Vicryl suture in simple interrupted fashion with two layers. We then placed 3-0 Monocryl as a subcuticular stitch to approximate the skin. Dermabond was then used as an occlusive dressing. The patient was then taken to PACU under stable condition without any apparent complications noted at this time. Job ID: [id number]
== END 2018-11-07 17:30 | disposition home or self-care (01) ==
LOC: SDC 11:34
PROVIDERS: ATTEND Specialist
PROC: 0JH60DZ Insertion of Multiple Array Stimulator Generator into Chest Subcutaneous Tissue and Fascia, Open Approach (ICD-10-PCS; principal; 2018-11-07)
PROC: 00HU3MZ Insertion of Neurostimulator Lead into Spinal Canal, Percutaneous Approach (ICD-10-PCS; 2018-11-07)
DX: M96.1 Postlaminectomy syndrome, not elsewhere classified (principal); G89.4 Chronic pain syndrome; M47.26 Other spondylosis with radiculopathy, lumbar region; M43.16 Spondylolisthesis, lumbar region; M99.83 Other biomechanical lesions of lumbar region; M46.1 Sacroiliitis, not elsewhere classified; G43.909 Migraine, unspecified, not intractable, without status migrainosus; E27.1 Primary adrenocortical insufficiency; E03.9 Hypothyroidism, unspecified; Z79.899 Other long term (current) drug therapy; Z88.0 Allergy status to penicillin; Z88.1 Allergy status to other antibiotic agents; Z88.2 Allergy status to sulfonamides; Z88.8 Allergy status to other drugs, medicaments and biological substances; Z91.040 Latex allergy status
CPT/HCPCS: 63650 ×2; 63685; 72072; 76000; C1767; J0670; J1956; J2704; J3010

== ENCOUNTER 2018-12-01 00:20 | Observation (INO) | payer MEDICARE ==
[2018-12-01] MEDS ORDERED: HYDROcodone/Acetaminophen 10/325 mg Tablet ONE (00:42)
[2018-12-01 02:09] LABS: #Basophils 0.1 thou/uL (0.0-0.2); #Eosinphils 0.2 thou/uL (0.0-0.7); #Monocytes 0.7 thou/uL (0.11-0.59); #Neutrophils 3.8 thou/uL (1.40-6.50); %Basophils 1.3 % (0.0-1.0); %Eosinophils 2.3 % (0.0-10.0); %Lymphocytes 29.4 % (21.0-51.0); %Monocytes 10.5 % (0.0-10.0); %Neutrophils 56.6 % (42.0-75.0); Hemoglobin 12.2 g/dL (12.0-16.0); Mean Corpuscular HGB CONC 32.5 g/dL (32.0-36.0); Mean Corpuscular Hemoglobin 29.2 pg (27.0-31.0); Mean Corpuscular Volume 89.9 fL (78.0-98.0); Mean Platelet Volume 8.3 fL (7.4-10.4); Platelet Count 182 thou/uL (130-400); RBC Distribution Width 13.7 % (11.5-14.5); Red Blood Cell (RBC) Count 4.18 mill/uL (4.20-5.40); White Blood Cell (WBC) Count 6.8 thou/uL (4.8-10.8)
[2018-12-01] MEDS ORDERED: Ketorolac Tromethamine 30 MG/ML VIAL ONE (02:21)
[2018-12-01] MEDS ORDERED: Morphine 4 MG/ML VIAL ONE (02:21)
[2018-12-01 02:29] LABS: ALT (SGPT) 12 U/L (8-55); AST (SGOT) 14 U/L (5-34); Albumin 3.9 g/dL (3.5-5.0); Alkaline Phosphatase 43 U/L (40-150); Anion Gap 11 mmol/L (10-20); BUN (Urea Nitrogen) 12 mg/dL (7.0-18.7); Bilirubin, Total 0.4 mg/dL (0.2-1.2); Calc. Creatinine Clearance 0 mL/min (70-130); Calcium 9.6 mg/dL (7.8-10.44); Carbon Dioxide 20 mmol/L (22-29); Chloride 111 mmol/L (98-107); Estimated GFR-MDRD Greater than 90; Globulin 2.6 g/dL (2.4-3.5); Glucose 87 mg/dL (70-105); Potassium 3.7 mmol/L (3.5-5.1); Protein, Total 6.5 g/dL (6.0-8.3); Sodium 138 mmol/L (136-145)
[2018-12-01 04:03] VITALS: BMI 17.2
[2018-12-01] MEDS: Morphine 2 MG/ML SYRINGE SLOW IVP PRN ×4 (06:11→18:20)
[2018-12-01] MEDS ORDERED: Ondansetron PF 4 MG/2 ML Vial IVP PRN (09:14)
[2018-12-01] MEDS ORDERED: Ibuprofen 200 MG TAB PO PRN (09:14)
[2018-12-01] MEDS ORDERED: Ondansetron ODT 4 MG TAB PO PRN (09:14)
[2018-12-01] MEDS ORDERED: Acetaminophen 500 MG TAB PO PRN (09:14)
[2018-12-01] MEDS ORDERED: Ketorolac Tromethamine 30 MG/ML VIAL IVP SCH (09:15)
[2018-12-01] MEDS ORDERED: Lorazepam 1 MG TAB PO PRN (09:29)
[2018-12-01] MEDS ORDERED: FLUoxetine HCl 20 MG CAP PO SCH (10:45)
[2018-12-01] MEDS ORDERED: Topiramate 100 MG TAB PO SCH (10:45)
[2018-12-01] MEDS: Methimazole 10 MG TAB PO SCH (10:50)
[2018-12-01] MEDS: Lacosamide 50 mg Tablet PO SCH ×2 (10:51→22:21)
--- NOTE | 2018-12-01 11:15 | HP ---
PRIMARY CARE PROVIDER: Dr. Jeanie Loya. CHIEF COMPLAINT: Spinal cord stimulator malfunction. HISTORY OF PRESENT ILLNESS: This is a 33-year-old female, who presented to [facility] complaining of right chest and upper back pain when her spinal cord stimulator has been discharging. The patient states she was walking down the stairs in her home when she miss judged the last step, stumbling, but not falling, correcting herself, and twisting her trunk. The patient states she developed pain in her upper back and right flank region when her spinal cord stimulator began to malfunction and discharged at regular intervals. The patient denied any direct trauma or injury, swelling, or fever. The patient states she has been compliant since her spinal cord stimulator was placed in late October 2018. The patient has been on a driving activity and bathing restriction after placement of the device. The patient states she has been doing very well since the spinal cord stimulator was placed with near resolution of all back and lower extremity pain. The patient denied any bowel or bladder incontinence, dysuria, hematuria, or blood in the stool. The patient denied any specific shortness of breath or chest pain. The patient attempted to reach the spinal cord stimulator sales representative advertising to evaluate her device after she was unable to connect with the device using her phone as she had previously. The patient presented to the emergency room for further evaluation. PAST MEDICAL HISTORY: 1. Hypothyroidism. 2. Hypoadrenalism. 3. History of epilepsy. 4. Migraine headaches. 5. Chronic Lyme disease. 6. Graves disease. 7. Chronic pain syndrome. PAST SURGICAL HISTORY: 1. Status post hysterectomy. 2. Status post lumbar laminectomy with spinal fusion. 3. Status post spinal cord stimulator placement in October 2018. 4. Status post bilateral tubal ligation. 5. Status post cholecystectomy. 6. Status post section. 7. Status post tonsillectomy with adenoidectomy. 8. Status post wisdom tooth extraction. 9. Status post lithotripsy. 10. Status post PICC line placement of bilateral upper extremities with removal. PSYCHIATRIC HISTORY: Positive for anxiety/depression. CURRENT MEDICATIONS: 1. Clonazepam 1 mg p.o. at bedtime. 2. Prozac 20 mg p.o. daily. 3. Vimpat 100 mg p.o. b.i.d. 4. Lorazepam 1 mg p.o. as needed. 5. Methimazole 20 mg p.o. daily. 6. Singulair 10 mg p.o. at bedtime. 7. Topamax 100 mg p.o. b.i.d. ALLERGIES: DEXAMETHASONE, DILANTIN, KEPPRA, LATEX, PENICILLIN, SULFA, CEPHALOSPORINS, AND VANCOMYCIN. FAMILY HISTORY: Positive for hypothyroidism. SOCIAL HISTORY: The patient resides in [place], [place]. Accompanied by her daughter in the hospital. Disabled. No current alcohol, tobacco, or illicit drug use. Functional of all activities of daily living. REVIEW OF SYSTEMS: CONSTITUTIONAL: Negative for weight loss or gain, ability to conduct usual activities. SKIN: Negative for rash, itching. EYES: Negative for double vision, pain. ENT/MOUTH: Negative for nose bleeding, neck stiffness, pain, tenderness. CARDIOVASCULAR: Negative for palpitations, dyspnea on exertion, orthopnea. RESPIRATORY: Negative for shortness of breath, wheezing, cough, hemoptysis, fever or night sweats. GASTROINTESTINAL: Negative for poor appetite, abdominal pain, heartburn, nausea, vomiting, constipation, or diarrhea. GENITOURINARY: Negative for urgency, frequency, dysuria, nocturia. MUSCULOSKELETAL: Negative for pain, swelling. NEUROLOGIC/PSYCHIATRIC: Negative for anxiety, depression. ALLERGY/IMMUNOLOGIC: Negative for skin rash, bleeding tendency. Otherwise, negative except as stated per HPI. PHYSICAL EXAMINATION: VITAL SIGNS: On admission, blood pressure 98/57, pulse 84, respiratory rate 18, temperature 98 degrees Fahrenheit, and O2 saturation 100% on room air. GENERAL APPEARANCE: This is a 33-year-old female, alert and oriented x3, pleasant, in no acute distress. HEENT: Pupils are equal, round, reactive to light and accommodation. Extraocular muscles are intact. No scleral icterus. No conjunctival injection. Nares patent. OP is clear. Teeth in good repair. NECK: Supple. No cervical adenopathy. No thyromegaly. No carotid bruits. No JVD appreciated. Cervical spine with full active and passive range of motion. No meningeal signs noted. CHEST: Lungs are clear to auscultation bilaterally. CARDIOVASCULAR: S1 and S2 without noted murmur, rub, or gallop. ABDOMEN: Flat, soft, nontender, and nondistended. Bowel sounds are positive in all 4 quadrants. There is no hepatosplenomegaly. No abdominal bruits. No rebound or guarding appreciated. EXTREMITIES: Warm and dry with fair turgor. No clubbing, cyanosis, or asymmetric edema appreciated. Pulses palpable distally at the dorsalis pedis, posterior tibial, and popliteal arteries bilaterally. Capillary refill less than 2 seconds. MUSCULOSKELETAL: Visual inspection of the thoracic and lumbar spine unremarkable. Small scar noted in the lower lumbar region without erythema, fluctuance, or discharge. Mild tenderness to palpation at the periphery of the scar. NEUROLOGIC: Cranial nerves 2 through 12 are grossly intact. No focal or lateralizing signs appreciated. PERTINENT LABORATORY DATA AND X-RAY FINDINGS: Complete metabolic profile within normal limits. CBC within normal limits. ASSESSMENT AND PLAN: 1. Spinal cord stimulator malfunction. The patient will be observed on the medical floor. We will consult Dr. Fisher with Pain Management Service for evaluation of spinal cord stimulator. Questionable lead displacement. 2. Back pain. We will provide morphine sulfate 2 mg IV q.4 hours p.r.n. Add Toradol 30 mg IV q.6 hours. Symptomatic and supportive management. 3. Seizure disorder, chronic and stable. Resume Vimpat 100 mg p.o. b.i.d. 4. Anxiety/depression. Continue Prozac 20 mg p.o. daily. Clonazepam 1 mg p.o. at bedtime. 5. Prophylaxis. SCDs while in bed. Pepcid 20 mg p.o. b.i.d. 6. Code status is full. Surrogate medical decision maker is the patient's mother. Job ID: [id number]
[2018-12-01] MEDS: Ketorolac Tromethamine 30 MG/ML VIAL IVP SCH ×3 (12:14→23:25)
--- NOTE | 2018-12-01 15:50 | CT ---
CT THORACIC SPINE: Date: 12/01/18 HISTORY: Dorsal column stimulator. History of fall. FINDINGS: CT images of thoracic spine performed. There is a dorsal column stimulator extending from T7 posterio r to T8 and T9. The thoracic spine is in good position with no evidence of acute fractures. The stimu lator leads are posterior to the thecal sac. They enter the spinal canal at T12-L1 level posteriorly. IMPRESSION: T7-8-9 position dorsal column stimulator. No evidence of thoracic spine fractures or bony lesions see n. POS: [facility]
--- NOTE | 2018-12-01 15:53 | CT ---
LUMBAR SPINE CT SCAN WITHOUT IV CONTRAST: Date: 12/01/18 HISTORY: Urinary retention, status post TLIF. FINDINGS: There appears to be a transitional vertebra at the lumbosacral level with a partially lumbarized S1. Postop laminectomy and pedicle screw placement changes at L5-S1. Very mild anterolisthesis, Grade I, approximately 0.4 cm. Dorsal column stimulator leads are seen extending up into the thoracic spine. N o evidence for acute lumbar spine fracture or dislocation. L1-L2, L2-L3, and L3-L4 discs demonstrate no significant canal or foraminal stenosis. Mild disc bulging at L4-L5 with very slight lateral recess thinning. Postoperative changes at L5-S1 with mild anterolisthesis and slight foraminal encroachment, but no si gnificant central canal stenosis. There is incidental note of bilateral nonobstructing renal calculi. IMPRESSION: Postoperative changes at L5-S1 with mild anterolisthesis. Stenotic changes as above involving L4-L5 a nd L5-S1. Nonobstructing bilateral renal calculi. No acute fracture or dislocation. Dorsal column sti mulator leads extending into the thoracic spine. POS: [facility]
[2018-12-01] MEDS ORDERED: clonazePAM 1 MG TAB PO SCH (21:00)
[2018-12-01] MEDS ORDERED: Montelukast Sodium 10 mg Tablet PO SCH (21:00)
--- NOTE | 2018-12-01 21:28 | CON ---
DATE OF CONSULTATION: 12/01/2018 TIME SEEN: 1400 hours. CHIEF COMPLAINT: Shock-like sensations in her right ribs. HISTORY OF PRESENT ILLNESS: The patient is a 33-year-old female who is a patient of mine who presented to the emergency room at approximately two in the morning on 12/01/2018, complaining of sharp electrical sensations that radiate from her lower thoracic spine to the right lower rib cage and these would occur every 6 minutes or so. It feels like burning and electric type sensations, shock-like sensations. The patient states that night she was walking downstairs and she slipped and fell down approximately 5 or 6 steps, hitting her buttock and back and then falling forward onto her stomach, catching herself with her arms. She states that at this time , she developed this dysfunction in her spinal cord stimulator. The patient had her spinal cord stimulator implanted in 10/2018, which was placed by myself and she was doing very well with good stimulation in her lower back and lower extremities covering her pain areas until last night. The patient states that currently her controller cannot connect to her battery device and when the controller states the battery is off, she continues to feel the shock-like sensations. She denies any bowel incontinence. However, she does admit to urinary retention and inability to void since her fall last night. This has been approximately 15 hours. She denies shortness of breath, chest pain. REVIEW OF SYSTEMS: GENERAL: The patient denies fever, chills, or fatigue. EYES: The patient denies blurry vision or vision changes. HEENT: No head trauma. No dizziness or Imbalance. CHEST: Denies shortness of breath, dyspnea on exertion, chest pain. HEART. Denies palpitations, orthopnea, swelling. GI: Denies diarrhea, constipation, nausea, or vomiting. GENITOURINARY: Does admit to inability to void despite trying several times for the last 15 hours. Denies any burning or pain with trying to void, but does admit to discomfort and sensation that she has to void. MUSCULOSKELETAL: Admits to back pain and leg pain, which is consistent with her pain prior to the stimulator placed. NEUROLOGICAL: Admits to numbness and tingling on her inside thighs. However, she does not have any muscle weakness. PAST MEDICAL HISTORY: 1. Hypothyroidism. 2. Hypoadrenalism. 3. Epilepsy. 4. Migraine. 5. Chronic Lyme disease. 6. Graves disease. 7. Chronic pain syndrome. PAST SURGICAL HISTORY: 1. Hysterectomy. 2. Lumbar laminectomy with fusion. 3. Spinal cord stimulator placement. 4. Tubal ligation. 5. Cholecystectomy. 6. . 7. Tonsillectomy, adenoidectomy. 8. [place] tooth extraction. 9. Lithotripsy. 10. PICC line placement and then removal. CURRENT MEDICATIONS: 1. Clonazepam 1 mg p.o. at bedtime. 2. Prozac. 3. Vimpat. 4. Lorazepam. 5. Methimazole. 6. Singulair. 7. Topamax. ALLERGIES: DEXAMETHASONE, DILANTIN, KEPPRA, LATEX, PENICILLIN, SULFA, CEPHALOSPORINS, AND VANCOMYCIN. FAMILY HISTORY: Positive for hypothyroidism. SOCIAL HISTORY: Resides here in [place], [place]. Currently disabled. No alcohol, drug, or tobacco use. PHYSICAL EXAMINATION: VITAL SIGNS: Blood pressure 98/57, pulse 84, respiratory rate 18, temperature 98 degrees, O2 saturation 100% on room air. GENERAL: Alert, oriented x3. No acute distress. HEENT: Pupils equally round, reactive to light. Extraocular muscles intact. NECK: Supple. No cervical lymphadenopathy. CHEST: Symmetric and nonlabored bilateral respirations. ABDOMEN: Flat, soft, nontender, nondistended. Some discomfort with palpation of the lower suprapubic region above her bladder. EXTREMITIES: Warm and dry. No clubbing, cyanosis, or edema. Pulses palpable distally. MUSCULOSKELETAL: 5/5 strength in bilateral upper and lower extremities. NEUROLOGICAL: Cranial nerves 2 through 12 are grossly intact and deep tendon reflexes intact. ASSESSMENT AND PLAN: 1. Spinal cord stimulator dysfunction after fall. The patient noted electrical discharges in her right chest following a thoracic nerve root pattern, one of the leads has likely migrated into the next one of the thoracic nerve roots due to the mechanism of the fall. Other possibilities are fractured lead or dysfunction with the battery. We will get the spinal cord stimulator quality audit representative to come in the morning to interrogate the device. I will also get a CT scan of the thoracic spine. 2. Back pain with urinary retention. Given her history of T lift in the past and history of listhesis, I am worried about adjacent segment disease. The fall may have caused a listhesis causing central canal stenosis which may be causing her urinary retention and numbness in her anterior thigh. She is moving all extremities and is not weak currently, which is not consistent with a diagnosis of cauda equina. However, given the urinary retention and saddle paresthesia, I will get a CT of the lumbar spine to evaluate this as well. We will meet with her tomorrow morning with the rep to interrogate the stimulator and may have to consider revision. Job ID: [id number] ADDENDUM 12/01/182029 CT T spine and L spine reviewed. Stim leads appear to have migrated cephelad 3 contacts and the right one has moved inferior to the right T7 pedicle which may be irritating the T7 nerve root. - Start lyrica. -Interrogate and reprogram stim in morning. -may need revision. L spine looks unchanged. hardware intact. no stenosis urinary retention is therefore likely from Morphine. -Stop morphine -start [place] 10/325mg 1-2 po q 6hrs prn pain. - DC anglin for voiding trial. Called nurse and gave verbal orders. Milan Fisher MD [facility]
[2018-12-01] MEDS ORDERED: HYDROcodone/Acetaminophen 10/325 mg Tablet PO PRN ×2 (21:42)
[2018-12-01] MEDS ORDERED: Pregabalin 75 MG CAP PO SCH (21:45)
[2018-12-01] MEDS: Famotidine 20 MG TAB PO SCH (22:03)
[2018-12-01] MEDS: Topiramate 100 MG TAB PO SCH (22:04)
[2018-12-02] MEDS: Ketorolac Tromethamine 30 MG/ML VIAL IVP SCH ×2 (05:15→12:39)
[2018-12-02] MEDS: Topiramate 100 MG TAB PO SCH (08:20)
[2018-12-02] MEDS: Famotidine 20 MG TAB PO SCH (08:21)
[2018-12-02] MEDS: Methimazole 10 MG TAB PO SCH (08:21)
[2018-12-02] MEDS ORDERED: Pregabalin 75 MG CAP PO SCH (09:00)
[2018-12-02] MEDS ORDERED: FLUoxetine HCl 20 MG CAP PO SCH (09:00)
[2018-12-02] MEDS: Lacosamide 50 mg Tablet PO SCH (09:56)
[2018-12-02 11:51] VITALS: BP 90/53; TEMP 98.7
--- NOTE | 2018-12-02 13:58 | PRG ---
DATE OF SERVICE: 12/02/2018 TIME OF ENCOUNTER: 12:15 p.m. CHIEF COMPLAINT: Shock-like sensations in her right rib. SUBJECTIVE: The patient continued to have pain overnight. Every 6 minutes, she felt shock-like sensations. These felt electrical and were in a T7 distribution on the right. Overnight, we discontinued the Horta catheter and also stopped the morphine and she was able to void this morning. Currently, the stimulator rep came by and reprogrammed her stimulator and the pain has diminished and gone away. She has good coverage now. PHYSICAL EXAMINATION: VITAL SIGNS: Temperature 98.7 degrees Fahrenheit, pulse 77, blood pressure 90/53, respirations 16, O2 saturation 98% on room air. GENERAL: Alert and oriented x4. No acute distress. CHEST: Symmetric, nonlabored bilateral respirations. ABDOMEN: Soft, nontender, nondistended. No discomfort with palpation. MUSCULOSKELETAL: 5/5 strength in bilateral upper and lower extremity. NEUROLOGICAL: Cranial nerves 2-12 are grossly intact. Deep tendon reflexes intact. ASSESSMENT AND PLAN: 1. Spinal cord stimulator dysfunction after a fall. CT scan of the thorax was performed last night and the leads appear to have migrated cephalad by 3 contacts. The right one has moved just inferior to the right T7 pedicle. The stimulation was programmed on the distal electrode on the right, which is why she was getting shock-like sensations on the right T7 nerve root. This was reprogrammed and stimulation was brought to one of the inferior contacts and the patient has pain relief in all previous pain areas and no longer has the sensation of shock-like sensations. The battery is working fine as well. 2. Back pain and urinary retention. CT of the lumbar spine last night did not reveal any changes. No signs of cauda equina. Hardware was intact. No stenosis. Urinary retention was likely from the morphine, which is why we stopped the morphine last night and started her on [place] p.r.n. We discontinued the Horta and she was able to void today. She can be discharged safely as far as the Pain team is concerns. She will follow up with us in 3 weeks. Job ID: [id number]
--- NOTE | 2018-12-03 11:32 | DIS ---
DATE OF ADMISSION: 12/01/2018 DATE OF DISCHARGE: 12/02/2018 CONSULTING PHYSICIAN: Dr. Fisher, Pain Medicine. DISCHARGE DIAGNOSES: 1. Chronic pain syndrome. 2. Spinal cord stimulator dysfunction after a fall. 3. Hypothyroidism. 4. Hypoadrenalism. 5. Epilepsy. 6. Chronic Lyme disease. 7. Graves disease. HOSPITAL COURSE: Ms. Benavides is a 33-year-old woman with chronic pain syndrome who presented with sharp electrical sensations radiating down the lower back every 6 minutes. She has a spinal cord stimulator in place and reports a fall when walking down the steps, hitting her back on the steps, then catch her fall at the end. The spinal cord stimulator was interrogated. CT of the lumbar spine was obtained, which showed postoperative changes at L5-S1 with mild anterolisthesis, stenotic changes involving L4-L5 and L5-S1. There were no acute changes including fractures or dislocation. The dorsal column stimulator leads were seen to extend into the thoracic spine. There were also nonobstructing bilateral renal calculi present. CT imaging of the thoracic spine also done, which showed T7 to T8-T9 position dorsal column stimulator with no evidence of fractures or bony lesions. The stimulator rep reprogrammed her stimulator and her pain resolved. Additionally, the patient did have urinary retention on initial presentation with back pain. A Horta catheter was discontinued and morphine was also stopped. The patient was then able to void normally prior to discharge. She otherwise did well without any other complications or difficulties. She continued to tolerate a regular diet during her stay. Moving her bowels as normal. On day of discharge, she denies any complaints. REVIEW OF SYSTEMS: Denies having any fevers, chills, or sweats. Denies any headaches or dizziness. No chest pain, palpitations, or shortness of breath. No abdominal pain or cramping. Back pain has fully resolved. No lower extremity edema or calf pain/tenderness. All other review of systems are negative. PHYSICAL EXAMINATION: GENERAL: The patient appears well developed, well nourished, and in no acute distress. VITAL SIGNS: Temperature 98.7, pulse 77, respirations 16, O2 saturation 98% on room air, BP 104/60. HEENT: Normocephalic and atraumatic. Pupils are equal, round, and reactive to light. Sclerae are without icterus. Oropharynx is clear. NECK: Supple. No lymphadenopathy. LUNGS: Clear to auscultation bilaterally without wheezes, rales, or rhonchi. CARDIAC: Regular rate and rhythm without audible murmurs, rubs, or gallops. ABDOMEN: Soft, nontender, nondistended. Normoactive bowel sounds present. EXTREMITIES: No clubbing, cyanosis, edema or calf tenderness. NEUROLOGIC: Alert and oriented x3. SKIN: Without rash or jaundice. LABORATORY DATA: White blood count 6.8, hemoglobin 12.2, hematocrit 37.5, platelets 182. Sodium 138, potassium 3.7, BUN 12, creatinine 0.69, GFR greater than 90, glucose 87, calcium 9.6, total bilirubin 0.4, AST 14, ALT 12, alkaline phosphatase 23, albumin 3.9. IMAGING DATA: As mentioned above in hospital course. DISCHARGE MEDICATIONS: The patient was advised to resume home medications. CONDITION: Stable. ACTIVITY: As tolerated. DIET: Regular. FOLLOWUP: The patient was advised to follow up with her primary care physician within 1 week. She will also follow up as an outpatient with Dr. Fisher. DISPOSITION: The patient cleared for discharge home on 12/02/2018. The patient's case was discussed with Dr. Castellanos, who agrees with plan of care as described above. Job ID: [id number]
[2018-12-06] MEDS ORDERED: Ibuprofen 200 MG TAB PO PRN (09:30)
== END 2018-12-02 13:13 | disposition home or self-care (01) ==
LOC: ERS 00:20 → T4-A 02:12
PROVIDERS: ADMIT Internal Medicine; ATTEND Internal Medicine
DX: T85.193A Other mechanical complication of implanted electronic neurostimulator, generator, initial encounter (principal); G89.4 Chronic pain syndrome; E03.9 Hypothyroidism, unspecified; E27.40 Unspecified adrenocortical insufficiency; G40.909 Epilepsy, unspecified, not intractable, without status epilepticus; E05.00 Thyrotoxicosis with diffuse goiter without thyrotoxic crisis or storm; A69.20 Lyme disease, unspecified; N20.0 Calculus of kidney; R33.8 Other retention of urine; Z79.899 Other long term (current) drug therapy; Z88.0 Allergy status to penicillin; Z88.1 Allergy status to other antibiotic agents; Z88.2 Allergy status to sulfonamides; Z88.8 Allergy status to other drugs, medicaments and biological substances; Z91.040 Latex allergy status; Z98.1 Arthrodesis status; Z98.890 Other specified postprocedural states; W10.8XXA Fall (on) (from) other stairs and steps, initial encounter
CPT/HCPCS: 51701; 51702; 72128; 72131; 80053; 85025; 96374; 96375; 96376 ×2; 99284; G0378 ×2; 36415; 51798; J1885; J2270

== ENCOUNTER 2019-01-21 10:30 | Day surgery (SDC) | payer MEDICARE ==
[2019-01-20 15:45] VITALS: BMI 17.5
[2019-01-21] MEDS ORDERED: Bupivacaine HCl 0.5%/Epinephrine 1:200,000/PF 30 ml Vial ONE (11:52)
[2019-01-21] MEDS ORDERED: Levofloxacin 500 mg/D5W 100 ml Premix Bag ONE (12:07)
[2019-01-21] MEDS ORDERED: Fentanyl 100 MCG/2 ML VIAL ONE (12:32)
[2019-01-21] MEDS ORDERED: Propofol 500 MG/50 ML VIAL ONE (12:33)
[2019-01-21] MEDS ORDERED: PROPOFOL 200 MG/20 ML VIAL ONE (14:41)
[2019-01-21] MEDS ORDERED: ePHEDrine 50 MG/ML VIAL ONE (14:41)
--- NOTE | 2019-01-21 19:55 | RAD ---
XR Thoracic Spine 1 View History: [Insertion of dorsal column stimulator] Comparison: None. Findings: Several spot fluoroscopic image was obtained. Dorsal column stimulator is present. Impression: Fluoroscopy for surgical purposes.
--- NOTE | 2019-01-22 14:28 | OP ---
DATE OF PROCEDURE: 01/21/2019 PREOPERATIVE DIAGNOSES: 1. Chronic pain syndrome. 2. Post-laminectomy syndrome. 3. Lumbar radiculopathy. POSTOPERATIVE DIAGNOSES: 1. Chronic pain syndrome. 2. Post-laminectomy syndrome. 3. Lumbar radiculopathy. PROCEDURES PERFORMED: 1. Spinal cord stimulator lead revision x2. 2. Fluoroscopy. 3. Programing. SPECIMENS REMOVED: Two Anchors intact, which were disposed of. ESTIMATED BLOOD LOSS: 5 mL. SUMMARY OF PROCEDURE: The patient was taken to the procedure room and placed prone on the procedure room table. A time-out was performed using ChloraPrep. We prepped the back and sterile drapes were applied. We used fluoroscopy to locate the previous anchors. We anesthetized the skin with 0.5% Marcaine with epinephrine. We made an incision with a 10 blade scalpel and blunt dissected down to the fascia layers. We blunt dissected the anchors out and cut the 2 silk sutures that held both anchors in place. The silk sutures were removed. The anchor was loosened. We then anesthetized the battery pocket incision. We made an incision with a 10 blade scalpel. Blunt dissected it down to the pocket, opened the pocket and disconnected the leads from the battery with the torque wrench. These leads were threaded to the anchor pocket. The anchors were then gently removed from the leads. The stylet was placed through each lead and under continuous fluoroscopy, we guided the leads back to midline and up to the top of T7. Stimulation was performed with the patient awake and she felt paresthesia in all areas of pain. We then took the stylettes out. We inserted new anchors over the leads and placed them into the fascia. We fixed them to the leads and sutured these down to fascia using 2-0 silk suture x2. A tunneling device was then used to create a tunnel between the 2 incisions. The leads were threaded through the tunneling device and brought out to the battery pocket. These were connected to the battery and torqued down with a wrench. The battery was placed inside the pockets and impedances were checked, which were all good. The pocket was approximated. The fascia was approximated using 2-0 Vicryl suture in a simple interrupted fashion. The skin was then closed with bhavik. A sterile 4 x 4 and dressing was applied. The patient was taken to the postop unit under stable condition without any apparent complications noted at this time. Job ID: [id number]
== END 2019-01-21 15:35 | disposition home or self-care (01) ==
LOC: SDC 10:30
PROVIDERS: ATTEND Specialist
PROC: 00WU3MZ Revision of Neurostimulator Lead in Spinal Canal, Percutaneous Approach (ICD-10-PCS; principal; 2019-01-21)
PROC: 00WU3MZ Revision of Neurostimulator Lead in Spinal Canal, Percutaneous Approach (ICD-10-PCS; 2019-01-21)
DX: G89.4 Chronic pain syndrome (principal); M96.1 Postlaminectomy syndrome, not elsewhere classified; M47.26 Other spondylosis with radiculopathy, lumbar region; M47.817 Spondylosis without myelopathy or radiculopathy, lumbosacral region; M43.16 Spondylolisthesis, lumbar region; M48.061 Spinal stenosis, lumbar region without neurogenic claudication; E03.9 Hypothyroidism, unspecified; G43.909 Migraine, unspecified, not intractable, without status migrainosus; G40.909 Epilepsy, unspecified, not intractable, without status epilepticus; E27.1 Primary adrenocortical insufficiency; M85.80 Other specified disorders of bone density and structure, unspecified site; Z79.899 Other long term (current) drug therapy; Z88.0 Allergy status to penicillin; Z88.1 Allergy status to other antibiotic agents; Z88.2 Allergy status to sulfonamides; Z88.8 Allergy status to other drugs, medicaments and biological substances; Z91.040 Latex allergy status; Z98.1 Arthrodesis status
CPT/HCPCS: 72020; 76000; J0670; J1956; J2704; J3010; J3490

== ENCOUNTER 2019-01-30 07:34 | Emergency (ER) | payer MEDICARE | END 2019-01-30 09:04 | disposition home or self-care (01) | LOC: ERS 07:34 | DX: Z48.817 Encounter for surgical aftercare following surgery on the skin and subcutaneous tissue (principal); F41.9 Anxiety disorder, unspecified; F32.9 Major depressive disorder, single episode, unspecified | CPT/HCPCS: 12001 ==

== ENCOUNTER 2019-04-03 07:30 | Emergency (ER) | payer MEDICARE ==
[2019-04-03] MEDS ORDERED: HYDROcodone/Acetaminophen 10/325 mg Tablet ONE (07:54)
[2019-04-03] MEDS ORDERED: Metoclopramide HCl 10 MG/2 ML VIAL ONE (09:29)
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
--- NOTE | 2019-04-03 09:34 | CT ---
CT LUMBAR SPINE WITH CORONAL AND SAGITTAL REFORMATIONS: HISTORY: Trauma, back pain COMPARISON: 12/01/2018 FINDINGS: Postoperative changes of posterior spinal fusion at L4-L5 level are again seen in good position and a lignment. The metallic hardware is intact. Minimal anterolisthesis of L4 over L5 is stable. Dorsal column stimulator leads enter into the spinal canal at T12-L1 level posteriorly. No acute fracture or dislocation is seen. Nonobstructing bilateral renal calculi are demonstrated.
--- NOTE | 2019-04-03 09:42 | CT ---
CT angiogram neck: 04/03/2019 COMPARISON: None HISTORY: Injury, trauma, pain TECHNIQUE: Serial axial CT imaging at 1.25 mm intervals from the lung apices through the skull base w ith IV contrast using CT angiogram protocol. Coronal and sagittal 3-D reformatted imaging obtained. FINDINGS: The axillary region on the left is partially imaged and there is a prominent amount of cont rast media in this region consistent with a left-sided extravasation. The imaged lung apices demonstrate no acute findings. 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 The origin of the innominate artery, left subclavian artery, left common carotid artery, right common carotid artery, right subclavian artery, and bilateral vertebral arteries is unremarkable. Bilateral vertebral arteries are patent. Left vertebral artery is dominant. On the basis of NASCET criteria, no hemodynamically significant stenosis is seen involving the common carotid artery or the internal carotid artery on either side. The imaged paranasal sinuses and mastoid air cells appear unremarkable. The retroantral fat and parapharyngeal fat appears clear bilaterally. The parotid glands and submandi bular glands are unremarkable. No evidence for lymphadenopathy or aerodigestive tract abnormality. Osseous structures appear unremarkable. IMPRESSION: Arterial structures of the neck appear patent. Evidence of the significant IV contrast extravasation in the left axillary region, incompletely asses sed on this examination. 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
== END 2019-04-03 10:31 | disposition short-term general hospital (02) ==
LOC: EEVIPCON 07:30 → ERS 07:30
DX: T74.21XA Adult sexual abuse, confirmed, initial encounter (principal); M54.5 Low back pain; M54.6 Pain in thoracic spine; M54.2 Cervicalgia; E03.9 Hypothyroidism, unspecified; G40.909 Epilepsy, unspecified, not intractable, without status epilepticus; G43.909 Migraine, unspecified, not intractable, without status migrainosus; I95.9 Hypotension, unspecified; I95.89 Other hypotension; F32.9 Major depressive disorder, single episode, unspecified; F41.9 Anxiety disorder, unspecified; Z79.899 Other long term (current) drug therapy; Y07.432 Male friend of parent (co-residing in household), perpetrator of maltreatment and neglect
CPT/HCPCS: 70498; 72128; 72131; 72170; 96365; J2765

== ENCOUNTER → 2019-06-04 | Day surgery (SDC) | payer MEDICARE ==
[~2019-06-04] MED LIST changes: +Heparin 1,000 UNITS/ML VIAL ONE; -ISOVUE-370 76%-LOCM 1 ML ONE
--- NOTE | 2019-06-04 11:43 | SPC ---
Ultrasound and Fluoroscopic guided left upper extremity PICC placement HISTORY: Reported osteomyelitis. Patient needs long-term IV antibiotics FINDINGS: Informed consent obtained prior to the procedure. An appropriate access site was determined with ultrasound guidance. The area was then meticulously pr epped and draped in usual sterile fashion. Skin overlying the left basilic vein anesthetized with 1% buffered lidocaine. Utilizing direct sonogr aphic guidance, vascular access is obtained via the left basilic vein, and an 0.018in guidewire was advanced to the cavoatrial junction. Intravascular length is calculated at 37 cm, and the PICC is cut accordingly. Needle is removed and replaced with a peel-away sheath. The PICC was advanced over the wire. Wire and peel-away sheath were removed. The tip of the catheter overlies the cavoatrial junction. The catheter was accessed and aspirated/flushed easily. Exposure data: 0 minutes of fluoroscopic time 83 mGy centimeter squared FINDINGS: Technically successful placement of a 37 centimeter single lumen 5 Estonian left upper extremity PICC l ine. IMPRESSION: Successful ultrasound guided placement of a left upper extremity PICC.
== END ==
LOC: SPEC 10:00
PROVIDERS: ATTEND Psychiatry & Neurology Neurology
PROC: 02HV33Z Insertion of Infusion Device into Superior Vena Cava, Percutaneous Approach (ICD-10-PCS; principal; 2019-06-04)
DX: A69.20 Lyme disease, unspecified (principal); Z88.0 Allergy status to penicillin; Z88.1 Allergy status to other antibiotic agents; Z88.2 Allergy status to sulfonamides; Z88.8 Allergy status to other drugs, medicaments and biological substances; Z91.040 Latex allergy status
CPT/HCPCS: 36569; C1751; J1644

== ENCOUNTER 2019-06-05 14:40 | Emergency (ER) | payer MEDICARE ==
[2019-06-05 15:41] LABS: #Eosinphils 0.1 thou/uL (0.0-0.7); #Lymphocytes 1.7 thou/uL (1.20-3.40); #Monocytes 0.6 thou/uL (0.11-0.59); #Neutrophils 2.8 thou/uL (1.40-6.50); %Basophils 0.8 % (0.0-1.0); %Lymphocytes 32.9 % (21.0-51.0); %Neutrophils 54.3 % (42.0-75.0); Hemoglobin 11.4 g/dL (12.0-16.0); Mean Corpuscular HGB CONC 33.9 g/dL (32.0-36.0); Mean Corpuscular Hemoglobin 31.8 pg (27.0-31.0); Mean Corpuscular Volume 93.7 fL (78.0-98.0); Mean Platelet Volume 8.8 fL (7.4-10.4); Platelet Count 176 thou/uL (130-400); RBC Distribution Width 11.5 % (11.5-14.5); Red Blood Cell (RBC) Count 3.59 mill/uL (4.20-5.40); White Blood Cell (WBC) Count 5.2 thou/uL (4.8-10.8)
--- NOTE | 2019-06-05 15:42 | RAD ---
XR Chest 1 View Portable History: Low blood pressure Comparison: Chest CT October 2018 Findings: Left PICC is in place with tip at the inferior SVC. Dorsal column similar pattern tip proje cts over the superior endplate of T7. Lungs are clear. No pneumothorax. No effusion. Right upper quadrant surgical clips. Impression: No acute intrathoracic abnormality.
[2019-06-05 15:55] LABS: Bilirubin Negative (Negative); Blood, Urine Negative (Negative); Clarity Clear (Clear); Glucose, Urine (Dipstick) Normal (Negative); Leukocyte Negative Leu/uL (Negative); Nitrite Negative (Negative); Protein, Urine (Dipstick) Negative (Neg-Trace); Urobilinogen Normal mg/dL (Less than 2)
[2019-06-05 16:07] LABS: ALT (SGPT) 24 U/L (8-55); AST (SGOT) 18 U/L (5-34); Albumin 3.7 g/dL (3.5-5.0); Alkaline Phosphatase 34 U/L (40-150); Anion Gap 8 mmol/L (10-20); BUN (Urea Nitrogen) 14 mg/dL (7.0-18.7); Bilirubin, Total Less than 0.2 mg/dL (0.2-1.2); Calc. Creatinine Clearance 0 mL/min (70-130); Calcium 8.7 mg/dL (7.8-10.44); Carbon Dioxide 20 mmol/L (22-29); Chloride 111 mmol/L (98-107); Estimated GFR-MDRD 81; Globulin 2.9 g/dL (2.4-3.5); Glucose 92 mg/dL (70-105); Potassium 3.7 mmol/L (3.5-5.1); Protein, Total 6.6 g/dL (6.0-8.3); Sodium 135 mmol/L (136-145)
== END 2019-06-05 16:30 | disposition home or self-care (01) ==
LOC: ERS 14:40
DX: I95.9 Hypotension, unspecified (principal); E03.9 Hypothyroidism, unspecified; E27.40 Unspecified adrenocortical insufficiency; G40.909 Epilepsy, unspecified, not intractable, without status epilepticus; G43.909 Migraine, unspecified, not intractable, without status migrainosus; F41.9 Anxiety disorder, unspecified; F32.9 Major depressive disorder, single episode, unspecified
CPT/HCPCS: 71045; 80053; 81003; 85025; 87040; 94760; 96360

== ENCOUNTER 2019-06-09 16:00 | Emergency (ER) | payer MEDICARE ==
[2019-06-09] MEDS ORDERED: Morphine 4 MG/ML VIAL ONE (17:26)
[2019-06-09] MEDS ORDERED: Ketorolac Tromethamine 30 MG/ML VIAL ONE (17:26)
--- NOTE | 2019-06-09 18:41 | RAD ---
Exam: 3 views lumbar spine COMPARISON: 04/28/2016 HISTORY: Pain. Fall from standing FINDINGS: There is a left-sided dorsal column stimulator, incompletely evaluated. 5 lumbar type vertebra. Sacralization of L5 is noted with pseudoarthrosis of the left and right L5 al a and the sacrum There are bilateral transpedicular screws at L4 and L5. No perihardware lucency. Disc prosthesis at L 4-L5. 5 mm of anterolisthesis of L4 upon L5, unchanged. Vertebral body height is maintained. No fracture Disc space heights are preserved IMPRESSION: 1. No fracture 2. Uncomplicated fusion at the L4-L5 level
[2019-06-09] MEDS ORDERED: Adacel (T-DAP) 0.5 ML SYRINGE ONE (19:26)
[2019-06-09] MEDS ORDERED: Fentanyl 100 MCG/2 ML VIAL ONE (19:26)
== END 2019-06-09 20:06 | disposition home or self-care (01) ==
LOC: ERS 16:00
DX: M54.5 Low back pain (principal); E03.9 Hypothyroidism, unspecified; G40.909 Epilepsy, unspecified, not intractable, without status epilepticus; F41.9 Anxiety disorder, unspecified; F32.9 Major depressive disorder, single episode, unspecified; W01.0XXA Fall on same level from slipping, tripping and stumbling without subsequent striking against object, initial encounter
CPT/HCPCS: 72100; 90471; 90715; 96374; 96375; J1885; J2270; J3010

== ENCOUNTER 2019-07-21 09:46 | Outpatient (CLI) | payer MEDICARE ==
--- NOTE | 2019-07-21 12:07 | RAD ---
CERVICAL SPINE SERIES 5 VIEWS: Date: 07/21/19 HISTORY: Neck pain without myelopathy. FINDINGS: The vertebral bodies are normal in height. Disc spaces are all well preserved. No abnormal motion is seen on the flexion or extension views. Facets are in normal alignment. IMPRESSION: Unremarkable cervical spine series. POS: SAMMIE
== END 2019-07-21 09:47 | disposition home or self-care (01) ==
LOC: RAD 09:46
PROVIDERS: ATTEND Specialist
DX: M47.812 Spondylosis without myelopathy or radiculopathy, cervical region (principal)
CPT/HCPCS: 72050

== ENCOUNTER 2019-07-27 12:59 | Emergency (ER) | payer MEDICARE ==
--- NOTE | 2019-07-27 14:34 | RAD ---
RADIOGRAPH LUMBAR SPINE 3 VIEWS: DATE: 07/27/2019 HISTORY: 33-year-old female with acute traumatic low back pain due to fall. FINDINGS: For the purposes of this report, the first nonrib-bearing lumbar-type vertebra will be designated as L1. Dysplastic, enlarged bilateral L5 transverse processes are fused with sacral ala. Laminectomy defect and bilateral pedicle screws at with interbody cage metallic markers. Grade 1 anterolisthesis of L4 on L5. Disc spaces superior to L4 are maintained. Vertebral body heights are maintained. Spinal cord stimulator generator overlies left buttock with leads ascending and entering posterior as pect of spinal canal at T12-L1. IMPRESSION: 1. No acute compression fracture. 2. Status post posterior lumbar interbody fusion and midline laminectomy at L4-5. 3. Grade 1 spondylolisthesis at L4-5. 4. Dorsal column spinal cord stimulator. 5. Lumbosacral transitional vertebra type IIIB.
[2019-07-27] MEDS ORDERED: HYDROcodone/Acetaminophen 10/325 mg Tablet ONE (14:44)
== END 2019-07-27 15:11 | disposition short-term general hospital (02) ==
LOC: ERS 12:59
DX: M54.5 Low back pain (principal); E03.9 Hypothyroidism, unspecified; G40.909 Epilepsy, unspecified, not intractable, without status epilepticus; G43.909 Migraine, unspecified, not intractable, without status migrainosus; F41.9 Anxiety disorder, unspecified; F32.9 Major depressive disorder, single episode, unspecified; Z79.899 Other long term (current) drug therapy; W18.30XA Fall on same level, unspecified, initial encounter
CPT/HCPCS: 72100

== ENCOUNTER 2019-08-12 12:26 | Outpatient (CLI) | payer MEDICARE ==
--- NOTE | 2019-08-12 14:15 | MRI ---
MRI Cervical spine without contrast: HISTORY: Neck Pain COMPARISON: None available FINDINGS: The craniocervical junction is unremarkable. No significant cord signal abnormality. C1-2:No significant stenosis. C2-3:No significant stenosis. C3-4:No significant stenosis. C4-5:No significant stenosis. C5-6:There is a right asymmetric disc osteophyte with probable small superimposed right foraminal pro trusion producing mild right neural foraminal stenosis. No significant central canal stenosis. C6-7: No significant stenosis. C7-T1:No significant stenosis. IMPRESSION: Mild right C5-6 level neural foraminal stenosis, due to right asymmetric disc osteophyte/small right foraminal zone disc protrusion.
== END 2019-08-12 12:27 | disposition home or self-care (01) ==
LOC: MRI 12:26
PROVIDERS: ATTEND Specialist
DX: M47.22 Other spondylosis with radiculopathy, cervical region (principal); M50.122 Cervical disc disorder at C5-C6 level with radiculopathy; M48.02 Spinal stenosis, cervical region
CPT/HCPCS: 72141

== ENCOUNTER 2019-11-24 09:03 | Emergency (ER) | payer MEDICARE ==
[2019-11-24 09:34] LABS: #Lymphocytes 1.5 thou/uL (1.20-3.40); #Monocytes 0.5 thou/uL (0.11-0.59); #Neutrophils 3.2 thou/uL (1.40-6.50); %Basophils 0.6 % (0.0-1.0); %Eosinophils 0.2 % (0.0-10.0); %Lymphocytes 28.6 % (21.0-51.0); %Monocytes 9.7 % (0.0-10.0); %Neutrophils 60.9 % (42.0-75.0); Hemoglobin 13.2 g/dL (12.0-16.0); Mean Corpuscular HGB CONC 33.2 g/dL (32.0-36.0); Mean Corpuscular Hemoglobin 31.3 pg (27.0-31.0); Mean Corpuscular Volume 94.4 fL (78.0-98.0); Mean Platelet Volume 8.1 fL (7.4-10.4); Platelet Count 201 thou/uL (130-400); RBC Distribution Width 11.4 % (11.5-14.5); White Blood Cell (WBC) Count 5.2 thou/uL (4.8-10.8)
[2019-11-24] MEDS ORDERED: Ketorolac Tromethamine 30 MG/ML VIAL ONE (09:47)
[2019-11-24 09:51] LABS: ALT (SGPT) 253 U/L (8-55); AST (SGOT) 54 U/L (5-34); Albumin 4.4 g/dL (3.5-5.0); Alkaline Phosphatase 50 U/L (40-110); Anion Gap 10 mmol/L (10-20); BUN (Urea Nitrogen) 11 mg/dL (7.0-18.7); Bilirubin, Total 0.3 mg/dL (0.2-1.2); Calc. Creatinine Clearance 0 mL/min (70-130); Calcium 9.6 mg/dL (7.8-10.44); Carbon Dioxide 21 mmol/L (22-29); Chloride 112 mmol/L (98-107); Estimated GFR-MDRD 82; Globulin 3.4 g/dL (2.4-3.5); Glucose 79 mg/dL (70-105); Potassium 3.9 mmol/L (3.5-5.1); Protein, Total 7.8 g/dL (6.0-8.3); Prothrombin Time 13.7 SEC (12.0-14.7); Sodium 139 mmol/L (136-145)
[2019-11-24 09:52] LABS: D-Dimer Test 0.4 *mcg/mL (0.27-0.43)
--- NOTE | 2019-11-24 10:00 | RAD ---
XR Chest 1 View Portable HISTORY: Chest pain COMPARISON: 06/05/2019 FINDINGS: The heart size is normal. The lungs are well expanded without focal areas of consolidation, pneumothorax or pleural effusions. Dorsal column stimulator leads are again seen. The left-sided PICC line has been removed in the inter im. IMPRESSION: No radiographic evidence of acute cardiopulmonary process.
[2019-11-24 10:10] LABS: Magnesium 1.9 mg/dL (1.6-2.6)
--- NOTE | 2019-11-24 10:57 | ULT ---
ULTRASOUND WITH DOPPLER DUPLEX VENOUS LOWER EXTREMITIES BILATERAL: DATE: 11/24/2019 HISTORY: 34-year-old female with history of pulmonary thromboembolism. TECHNIQUE: Color flow Doppler, spectral waveform analysis of pulsed Doppler, and hammonds-scale imaging with shyann helen and augmentation, were used to evaluate the bilateral common femoral, femoral, popliteal, freight loading supervisor ior tibial, and superficial femoral, veins; and the proximal portions of the profunda femoral and gre ater saphenous, veins. FINDINGS: There is normal compressibility, demonstration of blood flow by color Doppler and pulsed Doppler, and response to augmentation, in all interrogated veins. IMPRESSION: Negative. No deep vein thrombosis in the bilateral lower extremities. jn[] POS: CET
--- NOTE | 2019-11-24 11:15 | CT ---
CT PULMONARY ANGIOGRAM WITH IV CONTRAST AND 3-D POSTPROCESSING: HISTORY:Chest pain FINDINGS: There is good contrast opacification of the pulmonary arterial vasculature without filling defects to suggest pulmonary embolism. The thoracic aorta is well opacified without aneurysm or dissection. No pleural or pericardial effusions are seen. No pneumothoraces, focal areas of consolidation or lung masses are noted. There is a 4 mm peripheral nodule in the right lower lobe. Bony structures are unremarkable. Dorsal column stimulator leads are present in the thoracic spine. Upper abdominal tomograms demonstrate changes of cystectomy. IMPRESSION: No CT evidence of pulmonary embolism.
[2019-11-24 12:47] LABS: Bilirubin Negative (Negative); Blood, Urine Negative (Negative); Clarity Clear (Clear); Glucose, Urine (Dipstick) Normal (Negative); Leukocyte Negative Leu/uL (Negative); Nitrite Negative (Negative); Protein, Urine (Dipstick) Negative (Neg-Trace); Urobilinogen Normal mg/dL (Less than 2)
[2019-11-24] MEDS ORDERED: Iopamidol-370 76% 500 ML 1 ML ONE (14:49)
== END 2019-11-24 13:13 | disposition home or self-care (01) ==
LOC: ERS 09:03
DX: R07.9 Chest pain, unspecified (principal); E03.9 Hypothyroidism, unspecified; G40.909 Epilepsy, unspecified, not intractable, without status epilepticus; M85.80 Other specified disorders of bone density and structure, unspecified site; F32.9 Major depressive disorder, single episode, unspecified; F41.9 Anxiety disorder, unspecified; G43.909 Migraine, unspecified, not intractable, without status migrainosus; Z79.899 Other long term (current) drug therapy
CPT/HCPCS: 36415; 71045; 71275; 80053; 81003; 82550; 83735; 84443; 84484; 85025; 85379; 85610; 85730; 93005; 93970; 94760; 96361; 96374; J1885; Q9967

== ENCOUNTER 2019-12-03 00:22 | Emergency (ER) | payer MEDICARE ==
[2019-12-03] MEDS ORDERED: Ketorolac Tromethamine 30 MG/ML VIAL ONE (00:57)
[2019-12-03 01:21] LABS: #Lymphocytes 1.6 thou/uL (1.20-3.40); #Monocytes 0.5 thou/uL (0.11-0.59); #Neutrophils 3.1 thou/uL (1.40-6.50); %Basophils 0.9 % (0.0-1.0); %Eosinophils 0.4 % (0.0-10.0); %Lymphocytes 30.4 % (21.0-51.0); %Monocytes 8.6 % (0.0-10.0); %Neutrophils 59.8 % (42.0-75.0); Hemoglobin 11.6 g/dL (12.0-16.0); Mean Corpuscular HGB CONC 33.4 g/dL (32.0-36.0); Mean Corpuscular Hemoglobin 31.6 pg (27.0-31.0); Mean Corpuscular Volume 94.8 fL (78.0-98.0); Mean Platelet Volume 7.8 fL (7.4-10.4); Platelet Count 219 thou/uL (130-400); RBC Distribution Width 11.5 % (11.5-14.5); Red Blood Cell (RBC) Count 3.68 mill/uL (4.20-5.40); White Blood Cell (WBC) Count 5.2 thou/uL (4.8-10.8)
[2019-12-03 01:47] LABS: ALT (SGPT) 38 U/L (8-55); AST (SGOT) 20 U/L (5-34); Albumin 3.7 g/dL (3.5-5.0); Alkaline Phosphatase 41 U/L (40-110); Anion Gap 10 mmol/L (10-20); BUN (Urea Nitrogen) 11 mg/dL (7.0-18.7); Bilirubin, Total 0.2 mg/dL (0.2-1.2); Calc. Creatinine Clearance 0 mL/min (70-130); Calcium 8.3 mg/dL (7.8-10.44); Carbon Dioxide 18 mmol/L (22-29); Chloride 113 mmol/L (98-107); Estimated GFR-MDRD Greater than 90; Globulin 2.8 g/dL (2.4-3.5); Glucose 90 mg/dL (70-105); Potassium 3.4 mmol/L (3.5-5.1); Protein, Total 6.5 g/dL (6.0-8.3); Sodium 138 mmol/L (136-145)
--- NOTE | 2019-12-03 07:33 | RAD ---
EXAM: Single view of the chest HISTORY: Chest pain COMPARISON: 11/24/2019 FINDINGS: Single view of the chest shows a normal sized cardiomediastinal silhouette. There is no rubén dence of consolidation, mass, or pleural effusion. A spinal stimulation device is seen in the mid thoracic spine. IMPRESSION: No evidence of acute cardiopulmonary disease
--- NOTE | 2019-12-06 09:58 | EKG ---
Test Reason : Blood Pressure : / mmHG Vent. Rate : 068 BPM Atrial Rate : 068 BPM P-R Int : 144 ms QRS Dur : 092 ms QT Int : 402 ms P-R-T Axes : 058 072 049 degrees QTc Int : 427 ms Normal sinus rhythm Normal ECG Confirmed by SINTIA AHUMADA M.D. ([id number]), photograph editor KAYLA CROWLEY ([id number]) on 12/06/2019 9:57:49 AM Referred By: Confirmed By:SINTIA AHUMADA M.D.
== END 2019-12-03 02:42 | disposition home or self-care (01) ==
LOC: ERS 00:22
DX: R07.9 Chest pain, unspecified (principal); E03.9 Hypothyroidism, unspecified; F41.9 Anxiety disorder, unspecified; F32.9 Major depressive disorder, single episode, unspecified; Z79.899 Other long term (current) drug therapy
CPT/HCPCS: 36415; 71045; 80053; 83880; 84484; 85025; 93005; 96374; J1885

== ENCOUNTER 2020-02-24 10:29 | Emergency (ER) | payer MEDICARE ==
[2020-02-24] MEDS ORDERED: Ketorolac Tromethamine 30 MG/ML VIAL ONE (10:57)
[2020-02-24] MEDS ORDERED: Ondansetron PF 4 MG/2 ML Vial ONE (10:57)
[2020-02-24 11:42] LABS: #Basophils 0.1 thou/uL (0.0-0.2); #Eosinphils 0.1 thou/uL (0.0-0.7); #Lymphocytes 1.2 thou/uL (1.20-3.40); #Monocytes 0.5 thou/uL (0.11-0.59); #Neutrophils 3.7 thou/uL (1.40-6.50); %Basophils 1.1 % (0.0-1.0); %Eosinophils 2.2 % (0.0-10.0); %Lymphocytes 21.9 % (21.0-51.0); %Monocytes 8.7 % (0.0-10.0); %Neutrophils 66.2 % (42.0-75.0); Hemoglobin 13.4 g/dL (12.0-16.0); Mean Corpuscular HGB CONC 31.6 g/dL (32.0-36.0); Mean Corpuscular Hemoglobin 29.7 pg (27.0-31.0); Mean Corpuscular Volume 93.9 fL (78.0-98.0); Mean Platelet Volume 7.7 fL (7.4-10.4); Platelet Count 267 thou/uL (130-400); RBC Distribution Width 11.8 % (11.5-14.5); Red Blood Cell (RBC) Count 4.52 mill/uL (4.20-5.40); White Blood Cell (WBC) Count 5.7 thou/uL (4.8-10.8)
[2020-02-24 11:47] LABS: Bacteria/HPF 3+ HPF (None Seen); Bilirubin Negative (Negative); Blood, Urine 2+ (Negative); Calcium Oxalate Crystals 4+ HPF (None Seen); Clarity Turbid (Clear); Glucose, Urine (Dipstick) Normal (Negative); Leukocyte Negative Leu/uL (Negative); Nitrite Negative (Negative); Protein, Urine (Dipstick) 20 mg/dL (Neg-Trace); RBC/HPF Greater than 50 HPF (0-3); Urobilinogen Normal mg/dL (Less than 2)
[2020-02-24] MEDS ORDERED: cefTRIAXone\\ROCEPHIN 2 GM VIAL ONE (12:12)
[2020-02-24 12:17] LABS: ALT (SGPT) 28 U/L (8-55); AST (SGOT) 23 U/L (5-34); Albumin 4.5 g/dL (3.5-5.0); Alkaline Phosphatase 52 U/L (40-110); Anion Gap 10 mmol/L (10-20); BUN (Urea Nitrogen) 14 mg/dL (7.0-18.7); Bilirubin, Total 0.2 mg/dL (0.2-1.2); Calc. Creatinine Clearance 0 mL/min (70-130); Calcium 9.2 mg/dL (7.8-10.44); Carbon Dioxide 22 mmol/L (22-29); Chloride 109 mmol/L (98-107); Estimated GFR-MDRD Greater than 90; Globulin 3.6 g/dL (2.4-3.5); Glucose 85 mg/dL (70-105); Potassium 3.8 mmol/L (3.5-5.1); Protein, Total 8.1 g/dL (6.0-8.3); Sodium 137 mmol/L (136-145)
[2020-02-24 12:23] LABS: BHCG - Serum Negative (NEGATIVE); Pregs Control Background? CLEAR/WHITE (CLR/WHITE); Pregs Control Bar Appear? YES (CONTROL BAR)
--- NOTE | 2020-02-24 12:55 | CT ---
CT ABDOMEN NONCONTRAST CT PELVIS NONCONTRAST: (Urolithiasis protocol) DATE: 02/24/2020 HISTORY: 34-year-old female with left flank pain and dysuria COMPARISON: 06/02/2016 TECHNIQUE: IV injection of iodinated contrast media: None Oral contrast media: None FINDINGS: Other than for urolithiasis, the lack of IV and oral contrast limits the evaluation. There are a several bilateral renal calculi at the right renal mid and lower poles, and at left renal lower pole, calyces. Smaller 1's are too millimeter. The largest one is at the lower pole of left kidney measuring 5 x 4 x 2 mm. There is also 4 mm calculus at right renal lower pole calyx. There are no ureteral calculi. Tiny single metallic clip at left pelvic inlet is again noted. No bladder calculus. Decompressed urinary bladder. No hydronephrosis. It is uncertain whether these renal calculi were present on the previous CT were not, because the ramses or study was a contrast-enhanced study in which there is contrast material excreted into the bilateral calyces and medullary pyramids, which could easily obscure tiny calculi. Uterus is no longe r visualized. There is now a vaginal cuff. Currently little or no free fluid in the cul-de-sac. Cholecystectomy clips again noted. Within the limitations of a noncontrast scan, no obvious pathology identified involving liver, pancreas, adrenals, or spleen. No small bowel dilation. Lung bases are grossly clear. Laminectomy at L4-5. Bilateral pedicle screws at L4 and L5 stabilizing a grade 1 anter olisthesis of L4 on L5. Metallic markers for interbody cage. Interval progression of disc space narrowing. No bony bridges between the endplates. Dorsal column spinal cord stimulator leads enter up per lumbar spine and ascend into the thoracic spine. Lung bases are clear. IMPRESSION: 1) bilateral nephrolithiasis with several bilateral renal calculi. 2) no evidence of obstructive uropathy. 3) laminectomy and posterior lumbar interbody fusion changes at L4-5 at lower lumbar spine. No ankylo sis between the L4 and L5 vertebral bodies.. 4) interval status post hysterectomy 5) old status post cholecystectomy
== END 2020-02-24 15:10 | disposition home or self-care (01) ==
LOC: ERS 10:29
DX: N30.90 Cystitis, unspecified without hematuria (principal); N20.0 Calculus of kidney; E03.9 Hypothyroidism, unspecified; G40.909 Epilepsy, unspecified, not intractable, without status epilepticus; G43.909 Migraine, unspecified, not intractable, without status migrainosus; F41.9 Anxiety disorder, unspecified; F32.9 Major depressive disorder, single episode, unspecified; Z79.899 Other long term (current) drug therapy
CPT/HCPCS: 74176; 80053; 81003; 81015; 83605; 84703; 85025; 87086; 96361; 96365; 96366; 96375; J0696; J1885; J2405

== ENCOUNTER 2020-02-27 10:15 | Emergency (ER) | payer MEDICARE ==
[2020-02-27] MEDS ORDERED: Hydrocodone-Acetamin 15 ML UDCUP ONE (10:56)
[2020-02-27] MEDS ORDERED: HYDROcodone/Acetaminophen 7.5/325 mg Tablet ONE (10:57)
[2020-02-27 11:12] LABS: #Basophils 0.1 thou/uL (0.0-0.2); #Eosinphils 0.2 thou/uL (0.0-0.7); #Lymphocytes 1.1 thou/uL (1.20-3.40); #Monocytes 0.6 thou/uL (0.11-0.59); #Neutrophils 3.8 thou/uL (1.40-6.50); %Basophils 1.1 % (0.0-1.0); %Eosinophils 3.4 % (0.0-10.0); %Lymphocytes 18.8 % (21.0-51.0); %Monocytes 9.9 % (0.0-10.0); %Neutrophils 66.8 % (42.0-75.0); Hemoglobin 11.4 g/dL (12.0-16.0); Mean Corpuscular HGB CONC 32.4 g/dL (32.0-36.0); Mean Corpuscular Hemoglobin 30.8 pg (27.0-31.0); Mean Corpuscular Volume 94.9 fL (78.0-98.0); Mean Platelet Volume 7.8 fL (7.4-10.4); Platelet Count 208 thou/uL (130-400); RBC Distribution Width 11.5 % (11.5-14.5); White Blood Cell (WBC) Count 5.6 thou/uL (4.8-10.8)
[2020-02-27 11:31] LABS: BHCG - Serum Negative (NEGATIVE); Pregs Control Background? CLEAR/WHITE (CLR/WHITE); Pregs Control Bar Appear? YES (CONTROL BAR)
[2020-02-27 11:45] LABS: ALT (SGPT) 20 U/L (8-55); AST (SGOT) 21 U/L (5-34); Albumin 3.8 g/dL (3.5-5.0); Alkaline Phosphatase 39 U/L (40-110); Anion Gap 9 mmol/L (10-20); BUN (Urea Nitrogen) 16 mg/dL (7.0-18.7); Bilirubin, Total 0.2 mg/dL (0.2-1.2); Calc. Creatinine Clearance 0 mL/min (70-130); Calcium 8.7 mg/dL (7.8-10.44); Carbon Dioxide 21 mmol/L (22-29); Chloride 112 mmol/L (98-107); Estimated GFR-MDRD 88; Glucose 96 mg/dL (70-105); Potassium 3.8 mmol/L (3.5-5.1); Protein, Total 6.8 g/dL (6.0-8.3); Sodium 138 mmol/L (136-145)
[2020-02-27 11:50] LABS: Bacteria/HPF None Seen HPF (None Seen); Bilirubin Negative (Negative); Blood, Urine 2+ (Negative); Clarity Clear (Clear); Glucose, Urine (Dipstick) Normal (Negative); Leukocyte 25 Leu/uL (Negative); Nitrite Negative (Negative); Protein, Urine (Dipstick) Negative (Neg-Trace); RBC/HPF 21-50 HPF (0-3); Squamous Epithelial 0-3 HPF (0-3); Urobilinogen Normal mg/dL (Less than 2)
[2020-02-27] MEDS ORDERED: Ketorolac Tromethamine 30 MG/ML VIAL ONE (12:37)
== END 2020-02-27 13:58 | disposition home or self-care (01) ==
LOC: ERS 10:15
DX: R31.0 Gross hematuria (principal); R33.9 Retention of urine, unspecified; E03.9 Hypothyroidism, unspecified; F41.9 Anxiety disorder, unspecified; F32.9 Major depressive disorder, single episode, unspecified; Z79.899 Other long term (current) drug therapy
CPT/HCPCS: 36415; 51702; 80053; 81003; 81015; 84703; 85025; 87086; 96374; J1885

== ENCOUNTER 2020-05-06 06:13 | Inpatient (IN) | payer MEDICARE, OTHER ==
[2020-05-06] MEDS ORDERED: Levofloxacin 500 mg/D5W 100 ml Premix Bag ONE (08:05)
[2020-05-06] MEDS ORDERED: Iothalamate Meglumine 60% 50 ML VIAL FS ONE (09:02)
[2020-05-06] MEDS ORDERED: B & O ONE (09:02)
[2020-05-06] MEDS ORDERED: Fentanyl 100 MCG/2 ML VIAL ONE (09:08)
[2020-05-06] MEDS ORDERED: PROPOFOL 200 MG/20 ML VIAL ONE (09:49)
[2020-05-06] MEDS ORDERED: Ondansetron PF 4 MG/2 ML Vial ONE (09:49)
[2020-05-06] MEDS ORDERED: Ketorolac Tromethamine 30 MG/ML VIAL ONE (09:49)
[2020-05-06] MEDS ORDERED: PHENYLEPHRINE-NS 100 MCG/ML 10 ML SYRINGE ONE (09:49)
[2020-05-06] MEDS ORDERED: Lidocaine 1% PF 5 ML VIAL ONE (09:49)
[2020-05-06] MEDS ORDERED: Glycopyrrolate 0.2 MG/ML 5 ML SYRINGE ONE (09:49)
[2020-05-06] MEDS ORDERED: EPHEDRINE 25 MG/5 ML SYRINGE ONE (09:49)
[2020-05-06] MEDS ORDERED: Midazolam HCl 2 mg/2 ml Vial ONE ×3 (10:46→13:53)
--- NOTE | 2020-05-06 12:05 | OP ---
DATE OF PROCEDURE: 05/06/2020 SERVICE: Urology. PREOPERATIVE DIAGNOSIS: Bilateral renal stones. POSTOPERATIVE DIAGNOSIS: Bilateral renal stones. PROCEDURES PERFORMED: 1. Bilateral ureteroscopy. 2. Laser lithotripsy on the left. 3. Basket extraction on the left. 4. Placement of a 6 x 24 double-J stent on the left. 5. Basket extraction on the right with ureteroscopy on the right. 6. Placement of a 6 x 24 double-J stent on the right. INDICATIONS FOR PROCEDURE: Ms. Benavides is a 34-year-old white female with history of nephrolithiasis. She had a CT, demonstrating bilateral renal stones. She is concerned about passing stones on her own and states that she would rather have ureteroscopy to have them removed prophylactically and then work on stone prevention afterwards. We discussed surgery initially on the left and a staged surgery on the right; however, the patient started having pain on the right side and became concerned that the stone was moving. She stated on the day of surgery that she would rather have both sides taking care of at the same time if possible. I told her this was feasible and that we would do the left and possibly right at the same time. After discussion of risks and benefits, she agreed to proceed forward. DESCRIPTION OF PROCEDURE: After identification of armband and verification of consent, the patient was brought back to the operating room where she underwent general anesthesia with an LMA. She was placed in the dorsal lithotomy position and prepped and draped in the usual sterile fashion. After appropriate time-out, a lubricated 22-Filipino rigid cystoscope was introduced per urethra into the bladder. Attention was turned to the left ureteral orifice, which was cannulated with a 0.035 Sensor wire up to the level of renal pelvis. The cystoscope was then removed and a dual-lumen was advanced over the Sensor wire up to the level of the mid ureter. An Amplatz Super Stiff wire was then placed through the second lumen up to the level of renal pelvis and the dual-lumen removed. A 12/14-Filipino ureteral access sheath was then advanced through the left ureteral orifice over the Super Stiff wire up to the level of proximal ureter. The inner cannula and the Super Stiff wire were then removed, leaving the outer sheath and the Sensor wire in place as a safety wire. A flexible digital ureteroscope was then placed through the ureteral access sheath into the renal pelvis. A full pyeloscopy was performed, which demonstrated 2 stones both in the lower pole. One of the stones was relatively long, so a 200 micron laser fiber was used to fragment the stone into smaller pieces and then each piece removed with a 1.9-Filipino Roger basket. The other stone was simply grasped and removed in its entirety with the Roger basket. No additional stones were seen within the renal pelvis. Pull-back ureteroscopy was employed and no other stones were found within the ureter. Attention was then turned to the right side, which was done in the same fashion. The Sensor wire was initially advanced up followed by the dual-lumen and then the Super Stiff wire. The dual-lumen was removed and the same ureteral access sheath was advanced over the Super Stiff wire up to the level of proximal ureter. The inner cannula was then removed, leaving the outer sheath and Sensor wire in place as a safety wire. The digital ureteroscope was then passed through the ureteral access sheath into the renal pelvis. A solitary stone was encountered on this side in approximately the mid to lower pole where the stone was just simply grasped with the 1.9-Filipino Roger basket and removed in its entirety. Remaining pyeloscopy did not demonstrate any other significant stones other than a 1-mm fragment, which was too small to grasp. The remainder of the kidney appeared healthy. The pull-back ureteroscopy was employed and no additional stones were found within the ureter. The ureteral access sheath was then removed, leaving the Sensor wire in place. A 6 x 24 double-J stent was advanced over the Sensor wire on this side fluoroscopically and positioned into good positioning. The wire was then removed, leaving a good curl in the kidney and good curl in the bladder. This procedure was also done on the left side at the termination of the left-sided ureteroscopy by fluoroscopically positioning a 6 x 24 double-J stent on that side as well before the wire was removed on that side with good curl in the kidney and a good curl in bladder noted fluoroscopically. The cystoscope was then reinserted into the bladder with good confirmation of curls on both ureteral stents. The bladder was emptied and the cystoscope removed. The patient had B and O suppository placed in the rectum. She was taken out of positioning, awakened, taken to PACU for recovery in stable condition. COMPLICATIONS: None. ESTIMATED BLOOD LOSS: Minimal. RETAINED TUBES AND DRAINS: 6 x 24 double-J stents bilaterally. SPECIMENS: Stone from both kidneys for stone analysis. DISPOSITION: The patient will be discharged home and follow up with me in approximately 1 week for cystoscopy and stent removal. Job ID: [id number]
--- NOTE | 2020-05-06 13:29 | RAD ---
EXAM: XR IVP Retrograde PROVIDED CLINICAL HISTORY: Bilateral renal calculi. Ureteral stent placement. COMPARISON: None FINDINGS/IMPRESSION: 3 intraoperative fluoroscopic images from retrograde stent placement are provided. Surgical clips ove rlying the right upper quadrant with postoperative changes related to posterior fusion at the L4-5 level. Dorsal column stimulator device is noted in place. Initial image demonstrates catheter and jordy dewire in place overlying the region of the left ureter and left renal collecting system with second image demonstrating catheter and guidewire overlying the expected location right ureter and ri ght renal collecting system with evidence of a left ureteral stent in place. Final image demonstrates bilateral ureteral stents in place. Correlation with intraoperative findings is recommen ded.
[2020-05-06] MEDS ORDERED: Lorazepam 2 MG/ML VIAL SLOW IVP PRN (13:58)
[2020-05-06] MEDS ORDERED: Albuterol Sulfate 1.25 MG/3 ML NEB NEB PRN (14:07)
[2020-05-06] MEDS ORDERED: Lacosamide 400 MG in Sodium Chloride 0.9% 50 ML IVPB SCH (15:30)
--- NOTE | 2020-05-06 15:44 | CON ---
NEUROLOGY CONSULTATION DATE OF CONSULTATION: 05/06/2020 REASON FOR CONSULTATION: Breakthrough seizures. HISTORY OF PRESENT ILLNESS: Ms. 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 She received 2 mg of Versed which aborted the activity. Per patient, she has a longstanding history of epilepsy and has failed several medications and was currently followed by Dr. Giron in the Neurology outpatient clinic for migraines and seizures. She is on Topamax and Vimpat polytherapy and continues to remain intractable. Her last seizure was last week because of allergic reaction to amovig.. The patient was here for cystoscopy and toward the end of the procedure, she had breakthrough seizures which aborted after receiving Versed. Per patient, she has been compliant with the medications . She denies any nausea, vomiting, chest pain, abdominal pain, recent sick contacts or recent illness, focal numbness, focal paresthesias, focal weakness, or problems with swallowing or speech associated with the episode. REVIEW OF SYSTEMS: All 14 systems were reviewed and were negative except the pertinent positives and negatives mentioned in the HPI. PAST MEDICAL HISTORY: Epilepsy, migraine, fibromyalgia, chronic pain. PAST SURGICAL HISTORY: Nerve pain stimulator. SOCIAL HISTORY: Lives with the family. Denies smoking, alcohol, or illegal drug use. PHYSICAL EXAMINATION: VITAL SIGNS: Blood pressure 110/60, pulse 80, and respiratory rate 18. CVS: Regular rate and rhythm. CHEST: Clear. ABDOMEN: Soft. NECK: Supple. NEUROLOGIC: Mental status, the patient is alert and oriented to person, place, and time. Cranial nerves 2 through 12 intact. Motor, muscle tone and bulk are normal. Moving all 4 extremities equally and symmetrically. Sensory; withdraws to pinprick bilaterally. Cerebellar, finger-nose testing intact. Gait was deferred due to the patient's safety reason. DATA REVIEWED: I reviewed the previous MRI from October 2015, which was negative for mesial temporal sclerosis or acute pathology. ASSESSMENT AND PLAN: Ms. Marixa Benavides was consulted for breakthrough seizure. She does have history of epilepsy, and there is some history of presumed psychogenic nonepileptic spells, most likely the breakthrough seizure from weaning off from anesthesia and stress of the procedure. Consider loading with Vimpat 400 mg IV now and then restart home dose of Vimpat 100 mg p.o. b.i.d. and Topamax 200 mg p.o. b.i.d. Continue other home medications. Neuro checks every 4 hours. Ativan 2 mg IV for seizure greater than 2 minutes. Observe seizure precautions. Continue medical management per primary team. EEG to evaluate for interictal epileptiform activity was refused by patient and the father. Continue medical management per primary team. Plan discussed with the patient and the primary attending, Dr. Jacinto Oates. Patient can be fischarged on home regimen when stable. We will continue to follow. Thank you for the consult. Job ID: [id number] [facility]
[2020-05-06 15:47] LABS: #Basophils 0.1 thou/uL (0.0-0.2); #Eosinphils 0.1 thou/uL (0.0-0.7); #Lymphocytes 1.2 thou/uL (1.20-3.40); #Monocytes 0.6 thou/uL (0.11-0.59); #Neutrophils 7.6 thou/uL (1.40-6.50); %Basophils 0.6 % (0.0-1.0); %Eosinophils 0.7 % (0.0-10.0); %Lymphocytes 12.3 % (21.0-51.0); %Monocytes 6.4 % (0.0-10.0); %Neutrophils 80.1 % (42.0-75.0); Hemoglobin 11.4 g/dL (12.0-16.0); Mean Corpuscular HGB CONC 33.7 g/dL (32.0-36.0); Mean Corpuscular Hemoglobin 31.5 pg (27.0-31.0); Mean Corpuscular Volume 93.4 fL (78.0-98.0); Mean Platelet Volume 7.5 fL (7.4-10.4); Platelet Count 244 thou/uL (130-400); RBC Distribution Width 11.6 % (11.5-14.5); Red Blood Cell (RBC) Count 3.61 mill/uL (4.20-5.40); White Blood Cell (WBC) Count 9.5 thou/uL (4.8-10.8)
[2020-05-06] MEDS ORDERED: Acetaminophen 500 MG TAB PO PRN (15:58)
--- NOTE | 2020-05-06 16:00 | HP ---
HISTORY OF PRESENT ILLNESS: Ms. Benavides is a 34-year-old female with medical history of seizures (followed by Dr. Giron) and pseudoseizures who was admitted for breakthrough seizures. Had elective bilateral ureteroscopy with stone removal and stent placement. Tolerated the procedure well, but after the procedure, she reportedly had tonic-clonic activity and was difficult to arouse. At that point, the PACU nurse informed the anesthesiologist who requested the patient be evaluated by the hospitalist to determine the reason for her unresponsiveness On encounter, lying in position with arms across her chest. PACU COURSE: In the PACU, the patient was given Versed 4 mg but symptoms did not improve. After evaluation, the patient was given an additional 2 mg of Versed and was admitted to the IMCU for further workup and management. REVIEW OF SYSTEMS: Review of system could not be carried out because the patient was not responsive. PAST MEDICAL HISTORY: Seizure disorder since childhood, followed by Dr. Giron ; Daryl disease; chronic hypotension; migraine (recently started on Aimovig); Lyme disease treated in 2012; [place] spotted fever; chronic back pain (s/p L4 and L5 fusion); hypothyroidism, renal calculi, and Graves disease. SURGICAL HISTORY: , tonsillectomy and adenoidectomy, cholecystectomy, tubal ligation, L4-5 fusion, and hysterectomy. SOCIAL HISTORY: not a smoker, rare alcohol consumption and no recreational drugs. She is disabled. FAMILY HISTORY: Mother had diabetes; other family members had hypertension and migraines. MEDICATIONS: Reconciled as per EMR. ALLERGIES: 1. CEFDINIR. 2. CEFTRIAXONE. 3. DEXAMETHASONE. 4. DIVALPROEX. 5. LATEX. 6. LEVETIRACETAM. 7. MORPHINE. 8. PENICILLINS. 9. PHENYTOIN. 10. PROCHLORPERAZINE. 11. SULFA. 12. VANCOMYCIN. PHYSICAL EXAMINATION: VITAL SIGNS: Pending. GENERAL APPEARANCE: Lying in bed in position with oxygen mask. HEENT: Normocephalic and atraumatic. Pupils 5 mm, equal bilaterally with mildly sluggish response to light. CARDIAC: Regular rate and rhythm. No murmurs, gallops, or rubs. LUNGS: Clear to auscultation bilaterally. No wheezing, rales, or rhonchi. GI: Soft, nondistended, normal bowel sounds. EXTREMITIES: No edema. Upon attempting to extend the patient's arm, the patient exhibited purposeful increased resistance. LABORATORY DATA AND IMAGING: No labs or imaging is available. ASSESSMENT AND PLAN: Ms. Benavides is a 34-year-old female with a medical history of seizures and pseudoseizures, who was admitted for breakthrough seizures status post elective bilateral ureteroscopy with stone removal and stent placement. Breakthrough seizures. 1. Per the father at bedside, the patient was recently started on Aimovig, and since then, had multiple seizures, last one a week ago. 2. Staff in the PACU reported tonic-clonic activity after operation. 3. Physical exam on encounter more consistent with delayed awakening from anesthesia and purposeful resistance to exam. 4. Plan;. a. Admit to the intermediate care unit. b. Neurology consulted stat; per Neurology, ordered the EEG and loaded the patient with vimpat c. Ativan 2 mg IV push q.15 minutes for breakthrough seizures. d. Continue maintenance dose Vimpat and Topamax. e. CMP, CBC, lacosamide and Topamax levels, drug screen, and plasma glucose. Bilateral renal calculi. 1. Postoperative day 0 status post bilateral ureteroscopy, laser lithotripsy, basket extraction of right and left renal calculi, and bilateral stent placement 2. started on tylenol and toradal PRN pain Disposition/prophylaxis: Full code. Surrogate decision maker is father. Gastrointestinal prophylaxis, no indication. DVT prophylaxis, Lovenox. ESTIMATED LENGTH OF STAY: one night Job ID: [id number] MTDD
[2020-05-06 16:02] LABS: ALT (SGPT) 14 U/L (8-55); AST (SGOT) 14 U/L (5-34); Albumin 3.6 g/dL (3.5-5.0); Alkaline Phosphatase 41 U/L (40-110); Anion Gap 12 mmol/L (10-20); BUN (Urea Nitrogen) 8 mg/dL (7.0-18.7); Bilirubin, Total 0.3 mg/dL (0.2-1.2); Calc. Creatinine Clearance 102 mL/min (70-130); Carbon Dioxide 17 mmol/L (22-29); Chloride 112 mmol/L (98-107); Estimated GFR-MDRD Greater than 90; Globulin 2.9 g/dL (2.4-3.5); Glucose 76 mg/dL (70-105); Magnesium 1.6 mg/dL (1.6-2.6); Potassium 3.3 mmol/L (3.5-5.1); Protein, Total 6.5 g/dL (6.0-8.3); Sodium 138 mmol/L (136-145)
[2020-05-06] MEDS: Ketorolac Tromethamine 30 MG/ML VIAL IVP PRN (16:13)
[2020-05-06] MEDS ORDERED: Electrolyte Replacement Protoc 1 EACH EACH FS SCH (16:30)
[2020-05-06] MEDS ORDERED: Electrolyte Replacement Protocol FS PRN (16:45)
[2020-05-06] MEDS ORDERED: Dextrose 5% in Water 1,000 ML IV PRN (17:07)
[2020-05-06] MEDS ORDERED: Dextrose 50% Abboject 50 ML SYRINGE SLOW IVP PRN (17:07)
[2020-05-06 17:52] VITALS: BMI 23.1
[2020-05-06] MEDS ORDERED: diphenhydrAMINE 25 MG CAP PO PRN (18:51)
[2020-05-06 19:47] LABS: Medtox Reader # READER 1; Phencyclidine (PCP) Not Detected (NotDetected); THC/Cannabinoid Screen Not Detected (NotDetected)
[2020-05-06 19:48] LABS: Amphetamine Not Detected (NotDetected); Barbiturates Screen Not Detected (NotDetected); Benzodiazepine Screen Detected (NotDetected); Cocaine Metabolite Screen Not Detected (NotDetected); Medtox Control Line Valid? VALID (VALID); Methadone Not Detected (NotDetected); Methamphetamine Detected (NotDetected); Opiate Screen Detected (NotDetected); Oxycodone Screen Not Detected (NotDetected); Tricyclic Screen Not Detected (NotDetected)
[2020-05-06] MEDS: Lacosamide 50 mg Tablet PO SCH (21:16)
[2020-05-06] MEDS: Topiramate 100 MG TAB PO SCH (21:16)
[2020-05-06] MEDS ORDERED: clonazePAM 0.5 MG TAB PO SCH (22:15)
[2020-05-07 04:05] LABS: ALT (SGPT) 11 U/L (8-55); AST (SGOT) 12 U/L (5-34); Albumin 3.2 g/dL (3.5-5.0); Alkaline Phosphatase 39 U/L (40-110); Anion Gap 11 mmol/L (10-20); BUN (Urea Nitrogen) 11 mg/dL (7.0-18.7); Bilirubin, Total 0.2 mg/dL (0.2-1.2); Calc. Creatinine Clearance 92 mL/min (70-130); Calcium 8.4 mg/dL (7.8-10.44); Carbon Dioxide 20 mmol/L (22-29); Chloride 110 mmol/L (98-107); Estimated GFR-MDRD 78; Globulin 2.7 g/dL (2.4-3.5); Glucose 92 mg/dL (70-105); Potassium 3.7 mmol/L (3.5-5.1); Protein, Total 5.9 g/dL (6.0-8.3); Sodium 137 mmol/L (136-145)
[2020-05-07] MEDS: Levothyroxine Sodium 88 MCG TAB PO SCH (04:36)
[2020-05-07] MEDS ORDERED: Dicyclomine 10 MG CAP PO SCH (05:15)
[2020-05-07] MEDS ORDERED: Magnesium 2 GM/50 ML 2 GM in Premix Bag 1 BAG IVPB SCH (06:15)
[2020-05-07] MEDS ORDERED: Metoclopramide HCl 10 MG TAB PO PRN (07:37)
--- NOTE | 2020-05-07 08:06 | PDOC.HOSPP ---
- Subjective Encounter Date: 05/07/20 Encounter Time: 07:00 Subjective: overnight, had tonic seizure at around 4:30-5am, desattede to 60s, did not require ativan. This morning, complaining of suprapubic stabbing pain. - Objective Vital Signs & Weight: Vital Signs (12 hours) Temp Pulse Ox 05/07/20 07:55 97 05/07/20 07:37 98.2 F 05/07/20 03:55 98.4 F 05/06/20 23:46 97.4 F L Weight Weight 134 lb 8 oz Most Recent Monitor Data Heart Rate from ECG 75 NIBP 106/68 NIBP BP-Mean 80 Respiration from ECG 14 SpO2 100 I&O: 05/06/20 05/07/20 05/08/20 06:59 06:59 06:59 Intake Total 1100 Output Total 2450 Balance -1350 Result Diagrams: 05/06/20 15:33 05/07/20 03:10 Additional Labs: Accuchecks 05/07/20 05/06/20 05/06/20 05:40 20:40 16:35 POC Glucose 100 94 66 L Hospitalist ROS - Review of Systems Constitutional: denies: chills, sweats Respiratory: denies: cough, shortness of breath, pleuritic pain, sputum Cardiovascular: denies: chest pain, palpitations Gastrointestinal: reports: abdominal pain. denies: nausea, vomiting Genitourinary: denies: dysuria, frequency, hematuria Skin: denies: rash - Medication Medications: Active Medications Generic Name Dose Route Start Last Admin Trade Name Freq PRN Reason Stop Dose Admin Acetaminophen 1,000 mg 05/06/20 15:58 05/07/20 04:36 Tylenol PO 1,000 mg Q6H PRN Administration Moderate to Severe Pain (6-10) Diphenhydramine HCl 25 mg 05/06/20 18:51 05/06/20 19:13 Benadryl PO 25 mg Q4H PRN Administration Itching Ketorolac Tromethamine 15 mg 05/06/20 16:00 05/06/20 16:13 Toradol IVP 05/11/20 16:01 15 mg Q6H PRN Administration Pain Lacosamide 100 mg 05/06/20 21:00 05/06/20 21:16 Vimpat PO 100 mg BID SIDNEY Administration Levothyroxine Sodium 88 mcg 05/07/20 06:00 05/07/20 04:36 Synthroid PO 88 mcg 0600 SIDNEY Administration Topiramate 200 mg 05/06/20 21:00 05/06/20 21:16 Topamax PO 200 mg BID SIDNEY Administration - Exam General - other findings: drowsy Eye: PERRL, anicteric sclera Neck: no JVD Heart: RRR, no murmur, no gallops, no rubs Heart - other findings: sinus on tele throughout night Respiratory: CTAB, no wheezes, no rales, no ronchi Gastrointestinal - other findings: b/l flank tenderness, suprapubic tenderness Extremities: no edema Skin: no rashes Psychiatric: A&O x 3 Hosp A/P - Plan Breakthrough seizures another 30s episode overnight, tonic, desatted to 60s, no ativan required Utox - +ve metamphetamines; likely due to ephedrine administered during procedure -also had phenylephrine during procedure, reports of it triggering seizures when used in conjunction with antiepileptics -pending lacosamide, topiramate levels -avoid medications that may precipitate seizures -continue to monitor; if additional seizures, can increase lacosamide by 50mg -neurology onboard; make appointment with Dr. Giron on discharge #hypothyroidism -TSH elevated despite levothyroxine -levothyroxine underdosed -recheck as outpatient, confirm patient is taking levothyroxine appropriately #renal caliculi s/p b/l stent placement POD 1; complains of pain started norco; per patient, she used norco before (morphine allergy) #urinary retention PM (05/07) had ~ 500cc on straight cath continue postvoid or q6h checking and straight cath as needed Full code GI PPx: no Ix DVT PPx: lovenox transfer to stroke unit ELOS: 1 night
[2020-05-07] MEDS: Ketorolac Tromethamine 30 MG/ML VIAL IVP PRN ×2 (08:24→21:48)
[2020-05-07] MEDS ORDERED: [UNRECOGNIZED DRUG - OTHER] TOP SCH (09:00)
[2020-05-07] MEDS ORDERED: TRETINOIN TOP SCH (09:00)
[2020-05-07] MEDS: Topiramate 100 MG TAB PO SCH ×2 (09:57→22:06)
[2020-05-07] MEDS: Lacosamide 50 mg Tablet PO SCH ×2 (09:57→22:07)
[2020-05-07] MEDS: Enoxaparin Sodium 30 MG/0.3 ML SYRINGE SC SCH (09:57)
[2020-05-07] MEDS: DULoxetine 60 MG CAP PO SCH (09:57)
[2020-05-07] MEDS: HYDROcodone/Acetaminophen 5/325 mg Tablet PO PRN ×2 (10:48→17:03)
--- NOTE | 2020-05-07 11:48 | PDOC.HOSPP ---
- Subjective Encounter Date: 05/07/20 Subjective: NEUROLOGY PROGRESS NOTE Patient had another breakthrough seizure , most likely in the setting of pain. - Objective Vital Signs & Weight: Vital Signs (12 hours) Temp Pulse Ox 05/07/20 07:55 97 05/07/20 07:37 98.2 F 05/07/20 03:55 98.4 F Weight Weight 134 lb 8 oz Most Recent Monitor Data Heart Rate from ECG 84 NIBP 94/62 NIBP BP-Mean 72 Respiration from ECG 19 SpO2 99 I&O: 05/06/20 05/07/20 05/08/20 06:59 06:59 06:59 Intake Total 1100 240 Output Total 2450 475 Balance -1350 -235 Result Diagrams: 05/06/20 15:33 05/07/20 03:10 Additional Labs: Accuchecks 05/07/20 05/06/20 05/06/20 05:40 20:40 16:35 POC Glucose 100 94 66 L Radiology Reviewed by me: Yes EKG Reviewed by me: Yes Hospitalist ROS - Review of Systems Constitutional: denies: fever, chills, sweats, weakness, malaise, other Eyes: denies: pain, vision change, conjunctivae inflammation, eyelid inflammation, redness, other ENT: denies: ear pain, ear discharge, nose pain, nose discharge, nose congestion , mouth pain, mouth swelling, throat pain, throat swelling, other Respiratory: denies: cough, dry, shortness of breath, hemoptysis, SOB with excertion, pleuritic pain, sputum, wheezing, other Cardiovascular: denies: chest pain, palpitations, orthopnea, paroxysmal noc. dyspnea, edema, light headedness, other Gastrointestinal: denies: nausea, vomiting, abdominal pain, diarrhea, constipation, melena, hematochezia, other Genitourinary: denies: dysuria, frequency, incontinence, hematuria, retention, other Musculoskeletal: reports: back pain Skin: denies: rash, lesions, celine, bruising, other Neurological: reports: confusion, seizures. denies: weakness, numbness, incoordination, change in speech, other - Medication Medications: Active Medications Generic Name Dose Route Start Last Admin Trade Name Freq PRN Reason Stop Dose Admin Acetaminophen 1,000 mg 05/06/20 15:58 05/07/20 04:36 Tylenol PO 1,000 mg Q6H PRN Administration Moderate to Severe Pain (6-10) Hydrocodone Bitart/Acetaminophen 1 tab 05/07/20 08:00 05/07/20 10:48 [place] 5/325 PO 1 tab Q6H PRN Administration Moderate Pain (4-6) Diphenhydramine HCl 25 mg 05/06/20 18:51 05/06/20 19:13 Benadryl PO 25 mg Q4H PRN Administration Itching Duloxetine HCl 60 mg 05/07/20 09:00 05/07/20 09:57 Cymbalta PO 60 mg DAILY SIDNEY Administration Enoxaparin Sodium 30 mg 05/07/20 09:00 05/07/20 09:57 Lovenox SC 30 mg 0900 SIDNEY Administration Ketorolac Tromethamine 15 mg 05/06/20 16:00 05/07/20 08:24 Toradol IVP 05/11/20 16:01 15 mg Q6H PRN Administration Pain Lacosamide 100 mg 05/06/20 21:00 05/07/20 09:57 Vimpat PO 100 mg BID SIDNEY Administration Levothyroxine Sodium 88 mcg 05/07/20 06:00 05/07/20 04:36 Synthroid PO 88 mcg 0600 SIDNEY Administration Topiramate 200 mg 05/06/20 21:00 05/07/20 09:57 Topamax PO 200 mg BID SIDNEY Administration - Exam General Appearance: awake alert Eye: PERRL ENT: normocephalic atraumatic Neck: supple Heart: RRR Respiratory: CTAB Gastrointestinal: soft Extremities: no cyanosis Skin: normal turgor Neurological: no new deficit Musculoskeletal: normal tone, normal strength, no muscle wasting Psychiatric: normal affect, normal behavior, A&O x 3 Hosp A/P (1) Breakthrough seizure Code(s): G40.919 - EPILEPSY, UNSP, INTRACTABLE, WITHOUT STATUS EPILEPTICUS Status: Acute (2) Folate deficiency anemia Code(s): D52.9 - FOLATE DEFICIENCY ANEMIA, UNSPECIFIED Status: Acute (3) Hypothyroidism Code(s): E03.9 - HYPOTHYROIDISM, UNSPECIFIED Status: Acute (4) Migraine headache Code(s): G43.909 - MIGRAINE, UNSP, NOT INTRACTABLE, WITHOUT STATUS MIGRAINOSUS Status: Acute (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 S/P cystoscopy. Patient refused EEG testing. Continue topamax 200 mg po bid Consider increasing Vimpat to 100 mg po qam and 150 mg po qpm until acute issues resolve. Observe seizure precautions. Ativan 2 mg IV for seizure greater than 2 minutes. Pain control. Continue home medications. PT/OT Continue medical management peer primary team. Follow up with Dr. Giron as outpatient on discharge.
[2020-05-07] MEDS ORDERED: Prevnar 13-Val Conj/PF 0.5 ML SYRINGE IM ONE (18:15)
--- NOTE | 2020-05-07 21:19 | PDOC.EVN ---
Event Note - Event Note Event Note: Notified by RN, patient with urine retention. She has been undergoing straight cath q4h. Given instructions to irrigate but unable to be done via straight cath. More recently, patient attempted to void on her own on bedside commode. Has some output but still had 428 mLs residual on BS. Failed attempt at straight cath with some bleeding. Horta to be placed for irrigation and to avoid further trauma with repeat straight caths. Day team to decide if Urology consult indicated.
[2020-05-07] MEDS ORDERED: Metoclopramide HCl 10 MG/2 ML VIAL IVP SCH (21:30)
[2020-05-07] MEDS: clonazePAM 1 MG TAB PO SCH (22:07)
[2020-05-08] MEDS: Levothyroxine Sodium 88 MCG TAB PO SCH (05:18)
[2020-05-08] MEDS ORDERED: Magnesium 2 GM/50 ML 2 GM in Premix Bag 1 BAG IVPB SCH (06:30)
[2020-05-08] MEDS: Lacosamide 50 mg Tablet PO SCH ×2 (09:50→22:21)
[2020-05-08] MEDS: Topiramate 100 MG TAB PO SCH ×2 (09:51→22:21)
[2020-05-08] MEDS: HYDROcodone/Acetaminophen 5/325 mg Tablet PO PRN ×2 (09:51→18:21)
[2020-05-08] MEDS: DULoxetine 60 MG CAP PO SCH (09:52)
--- NOTE | 2020-05-08 10:51 | PDOC.HOSPP ---
- Subjective Encounter Date: 05/08/20 Encounter Time: 09:15 Subjective: wants to go home, she feels better is amb in room had trouble passing urine overnight with retention and clots, anglin was placed - Objective Vital Signs & Weight: Vital Signs (12 hours) Temp Pulse Resp BP BP Pulse Ox 05/08/20 07:55 97.9 F 83 14 83/64 L 100 05/08/20 02:47 98.1 F 80 18 90/57 L 98 05/07/20 23:25 98.1 F 80 20 77/39 L 97 Weight Weight 134 lb 8 oz Most Recent Monitor Data Heart Rate from ECG 84 NIBP 94/62 NIBP BP-Mean 72 Respiration from ECG 19 SpO2 99 I&O: 05/07/20 05/08/20 05/09/20 06:59 06:59 06:59 Intake Total 1100 480 Output Total 2450 875 Balance -7200 395 Result Diagrams: 05/06/20 15:33 05/07/20 03:10 Additional Labs: Accuchecks 05/08/20 05/08/20 05/07/20 10:32 05:38 20:20 POC Glucose 112 H 92 118 H 05/07/20 05/07/20 16:56 12:32 POC Glucose 101 110 Hospitalist ROS - Medication Medications: Active Medications Generic Name Dose Route Start Last Admin Trade Name Freq PRN Reason Stop Dose Admin Acetaminophen 1,000 mg 05/06/20 15:58 05/07/20 04:36 Tylenol PO 1,000 mg Q6H PRN Administration Moderate to Severe Pain (6-10) Hydrocodone Bitart/Acetaminophen 1 tab 05/07/20 08:00 05/08/20 09:51 [place] 5/325 PO 1 tab Q6H PRN Administration Moderate Pain (4-6) Clonazepam 1 mg 05/07/20 21:00 05/07/20 22:07 Klonopin PO 1 mg HS SIDNEY Administration Duloxetine HCl 60 mg 05/07/20 09:00 05/08/20 09:52 Cymbalta PO 60 mg DAILY SIDNEY Administration Enoxaparin Sodium 30 mg 05/07/20 09:00 05/07/20 09:57 Lovenox SC 30 mg 0900 SIDNEY Administration Ketorolac Tromethamine 15 mg 05/06/20 16:00 05/07/20 21:48 Toradol IVP 05/11/20 16:01 15 mg Q6H PRN Administration Pain Lacosamide 100 mg 05/06/20 21:00 05/08/20 09:50 Vimpat PO 100 mg BID SIDNEY Administration Levothyroxine Sodium 88 mcg 05/07/20 06:00 05/08/20 05:18 Synthroid PO 88 mcg 0600 SIDNEY Administration Topiramate 200 mg 05/06/20 21:00 05/08/20 09:51 Topamax PO 200 mg BID SIDNEY Administration - Exam General Appearance: NAD, awake alert Eye: PERRL, anicteric sclera ENT: no oropharyngeal lesions, moist mucosa Neck: supple, no JVD Heart: RRR, no murmur Respiratory: no wheezes, no rales Gastrointestinal: soft, non-tender, non-distended, normal bowel sounds Extremities: no cyanosis, no edema Neurological: cranial nerve grossly intact, no focal deficits Psychiatric: normal affect, A&O x 3 Hosp A/P (1) Bilateral nephrolithiasis Code(s): N20.0 - CALCULUS OF KIDNEY Status: Acute (2) Breakthrough seizure Code(s): G40.919 - EPILEPSY, UNSP, INTRACTABLE, WITHOUT STATUS EPILEPTICUS Status: Acute (3) Hypothyroidism Code(s): E03.9 - HYPOTHYROIDISM, UNSPECIFIED Status: Chronic Qualifiers: Hypothyroidism type: unspecified Qualified Code(s): E03.9 - Hypothyroidism , unspecified (4) Seizure disorder Code(s): G40.909 - EPILEPSY, UNSP, NOT INTRACTABLE, WITHOUT STATUS EPILEPTICUS Status: Chronic - Plan had urinary retention sec to clots, has anglin d/w , will try to place larger anglin, hand irrigate to remove clots then cbi dc plan in am if her clots and [place] hematuria resolves with or without anglin hemostable d/w RN no further seizures on stroke unit to ambulate in hallway is on topamax, vimpat, cymbalta, klonopin (has multiple allergies)
[2020-05-08] MEDS ORDERED: Sodium Chloride 0.9% 1,000 ML IV SCH (11:00)
[2020-05-08] MEDS: Enoxaparin Sodium 30 MG/0.3 ML SYRINGE SC SCH (11:23)
--- NOTE | 2020-05-08 12:19 | PDOC.HOSPP ---
- Subjective Encounter Date: 05/08/20 Subjective: NEUROLOGY PROGRESS NOTE Patient had no seizures in the last 24 hours.l - Objective Vital Signs & Weight: Vital Signs (12 hours) Temp Pulse Resp BP BP Pulse Ox 05/08/20 11:52 98.1 F 83 18 103/72 100 05/08/20 07:55 97.9 F 83 14 83/64 L 100 05/08/20 02:47 98.1 F 80 18 90/57 L 98 Weight Weight 134 lb 8 oz Most Recent Monitor Data Heart Rate from ECG 84 NIBP 94/62 NIBP BP-Mean 72 Respiration from ECG 19 SpO2 99 I&O: 05/07/20 05/08/20 05/09/20 06:59 06:59 06:59 Intake Total 1100 480 Output Total 2450 875 Balance -1350 -395 Result Diagrams: 05/06/20 15:33 05/07/20 03:10 Additional Labs: Accuchecks 05/08/20 05/08/20 05/07/20 10:32 05:38 20:20 POC Glucose 112 H 92 118 H 05/07/20 05/07/20 16:56 12:32 POC Glucose 101 110 Radiology Reviewed by me: Yes EKG Reviewed by me: Yes Hospitalist ROS - Review of Systems Constitutional: denies: fever, chills, sweats, weakness, malaise, other Eyes: denies: pain, vision change, conjunctivae inflammation, eyelid inflammation, redness, other ENT: denies: ear pain, ear discharge, nose pain, nose discharge, nose congestion , mouth pain, mouth swelling, throat pain, throat swelling, other Respiratory: denies: cough, dry, shortness of breath, hemoptysis, SOB with excertion, pleuritic pain, sputum, wheezing, other Cardiovascular: denies: chest pain, palpitations, orthopnea, paroxysmal noc. dyspnea, edema, light headedness, other Gastrointestinal: denies: nausea, vomiting, abdominal pain, diarrhea, constipation, melena, hematochezia, other Genitourinary: denies: dysuria, frequency, incontinence, hematuria, retention, other Musculoskeletal: reports: shoulder pain, back pain, leg pain Neurological: reports: confusion, seizures. denies: weakness, numbness, incoordination, change in speech, other - Medication Medications: Active Medications Generic Name Dose Route Start Last Admin Trade Name Freq PRN Reason Stop Dose Admin Acetaminophen 1,000 mg 05/06/20 15:58 05/07/20 04:36 Tylenol PO 1,000 mg Q6H PRN Administration Moderate to Severe Pain (6-10) Hydrocodone Bitart/Acetaminophen 1 tab 05/07/20 08:00 05/08/20 09:51 [place] 5/325 PO 1 tab Q6H PRN Administration Moderate Pain (4-6) Clonazepam 1 mg 05/07/20 21:00 05/07/20 22:07 Klonopin PO 1 mg HS SIDNEY Administration Duloxetine HCl 60 mg 05/07/20 09:00 05/08/20 09:52 Cymbalta PO 60 mg DAILY SIDNEY Administration Enoxaparin Sodium 30 mg 05/07/20 09:00 05/08/20 11:23 Lovenox SC Not Given 0900 SIDNEY Sodium Chloride 1,000 mls @ 100 mls/hr 05/08/20 11:00 05/08/20 12:10 Normal Saline 0.9% IV 05/08/20 20:59 1,000 mls .Q10H SIDNEY Administration Ketorolac Tromethamine 15 mg 05/06/20 16:00 05/07/20 21:48 Toradol IVP 05/11/20 16:01 15 mg Q6H PRN Administration Pain Lacosamide 100 mg 05/06/20 21:00 05/08/20 09:50 Vimpat PO 100 mg BID SIDNEY Administration Levothyroxine Sodium 88 mcg 05/07/20 06:00 05/08/20 05:18 Synthroid PO 88 mcg 0600 SIDNEY Administration Topiramate 200 mg 05/06/20 21:00 05/08/20 09:51 Topamax PO 200 mg BID SIDNEY Administration - Exam General Appearance: awake alert Eye: PERRL ENT: normocephalic atraumatic Neck: supple Heart: RRR Respiratory: CTAB Gastrointestinal: soft Extremities: no cyanosis Skin: normal turgor Neurological: cranial nerve grossly intact, no focal deficits, no new deficit Musculoskeletal: normal tone, normal strength, no muscle wasting Psychiatric: normal affect, normal behavior, A&O x 3 Hosp A/P (1) Breakthrough seizure Code(s): G40.919 - EPILEPSY, UNSP, INTRACTABLE, WITHOUT STATUS EPILEPTICUS Status: Acute (2) Folate deficiency anemia Code(s): D52.9 - FOLATE DEFICIENCY ANEMIA, UNSPECIFIED Status: Acute (3) Hypothyroidism Code(s): E03.9 - HYPOTHYROIDISM, UNSPECIFIED Status: Chronic Qualifiers: Hypothyroidism type: unspecified Qualified Code(s): E03.9 - Hypothyroidism , unspecified (4) Migraine headache Code(s): G43.909 - MIGRAINE, UNSP, NOT INTRACTABLE, WITHOUT STATUS MIGRAINOSUS Status: Acute (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 S/P cystoscopy. She has no seizures since the last 24 hours. Patient refused EEG testing. Continue topamax 200 mg po bid Continue vimpat. Observe seizure precautions. Ativan 2 mg IV for seizure greater than 2 minutes. Pain control. Continue home medications. PT/OT Continue medical management peer primary team. Follow up with Dr. Giron as outpatient on discharge.
[2020-05-08] MEDS: Ketorolac Tromethamine 30 MG/ML VIAL IVP PRN (22:21)
[2020-05-08] MEDS: clonazePAM 1 MG TAB PO SCH (22:21)
[2020-05-09] MEDS: HYDROcodone/Acetaminophen 5/325 mg Tablet PO PRN (05:51)
[2020-05-09] MEDS: Levothyroxine Sodium 88 MCG TAB PO SCH (05:51)
[2020-05-09 07:49] VITALS: BP 97/65; TEMP 97.6
[2020-05-09 08:53] LABS: Hemoglobin 12.4 g/dL (12.0-16.0); Mean Corpuscular HGB CONC 32.4 g/dL (32.0-36.0); Mean Corpuscular Volume 95.8 fL (78.0-98.0); Mean Platelet Volume 7.2 fL (7.4-10.4); Platelet Count 278 thou/uL (130-400); RBC Distribution Width 11.9 % (11.5-14.5); Red Blood Cell (RBC) Count 3.99 mill/uL (4.20-5.40); White Blood Cell (WBC) Count 6.5 thou/uL (4.8-10.8)
[2020-05-09] MEDS: Topiramate 100 MG TAB PO SCH (09:08)
[2020-05-09] MEDS: Lacosamide 50 mg Tablet PO SCH (09:09)
[2020-05-09] MEDS: DULoxetine 60 MG CAP PO SCH (09:09)
[2020-05-09 09:19] LABS: Anion Gap 14 mmol/L (10-20); BUN (Urea Nitrogen) 8 mg/dL (7.0-18.7); Calc. Creatinine Clearance 107 mL/min (70-130); Calcium 8.5 mg/dL (7.8-10.44); Carbon Dioxide 17 mmol/L (22-29); Chloride 111 mmol/L (98-107); Estimated GFR-MDRD Greater than 90; Glucose 69 mg/dL (70-105); Potassium 3.7 mmol/L (3.5-5.1); Sodium 138 mmol/L (136-145)
[2020-05-09 10:11] LABS: Eosinophils 10 % (0-10); Lymphocytes 23 % (21-51); MDiff Complete? YES; Monocytes 8 % (0-10); Neutrophil 57 % (42-75); Platelet Morphology Comment Appears Adequate; Reactive Lymphocytes 2 % (0-10)
--- NOTE | 2020-05-10 14:04 | DIS ---
DATE OF ADMISSION: 05/06/2020 DATE OF DISCHARGE: 05/09/2020 DISCHARGE DISPOSITION: Home. PRIMARY DISCHARGE DIAGNOSES: Bilateral nephrolithiasis, status post cystoscopy with stenting and laser lithotripsy; breakthrough seizure with history of seizure disorder; hypothyroidism. PROCEDURES DONE DURING HOSPITALIZATION: The patient had a bilateral ureteroscopy with laser lithotripsy on the left, basket extraction on the left, placement of a 6 x 24 double-J stent on the left, basket extraction on the right with ureteroscopy, and placement of a 6 x 24 double-J stent on the right. All of these procedures were done by Dr. Varner on 05/06/2020. H and H 12 and 38, platelet count 278, white count of 6, MCV 95. Discharge BUN and creatinine of 8 and 0.6. DISCHARGE MEDICATIONS: 1. Topamax 200 mg twice daily. 2. Ativan 1 mg p.o. daily p.r.n. 3. Levothyroxine 88 mcg p.o. daily. 4. Vimpat 100 mg twice daily. 5. Duloxetine 60 mg daily. 6. Clonazepam 1 mg p.o. at bedtime. 7. Albuterol nebulizer q.6 hourly p.r.n. ALLERGIES: CEFDINIR, DEXAMETHASONE, DEPAKOTE, KEPPRA, MORPHINE, LATEX, PENICILLIN, PHENYTOIN, COMPAZINE, SULFA, VANCOMYCIN, CEFTRIAXONE. DISCHARGE PLAN: The patient is to follow up with Dr. Varner on 05/11/2020. She needs to follow up with her primary care physician, Dr. Loya in 1 week. BRIEF COURSE DURING HOSPITALIZATION: The patient initially had elective urologic procedure as mentioned above. In the PACU, the patient developed seizure, which was thought to be breakthrough seizure and the patient was hospitalized. She was given 4 mg of Versed and additional 2 mg of Versed was given as her seizures did not improve after the initial dose. She was initially admitted to IMCU and later downgraded to stroke unit. Ms. Benavides did not have any further seizures after that. She has had consultation with Dr. Reyes. The patient refused EEG. She has had urinary retention with blood clots post urologic procedure and had Horta catheter placed for retention. She also had continuous bladder irrigation done for 24 hours. Her urine is slightly blood-tinged at the time of discharge, which is expected due to her having bilateral stents. She is otherwise hemodynamically stable, ambulating and eating well prior to discharge. She needs to follow up with Dr. Varner on 05/11/2020. At the time of discharge, the patient's Horta catheter was removed and she has passed urine nearly 3 times prior to discharge. Please note, I have seen and examined the patient on the day of discharge. Job ID: [id number] [facility]
[2020-05-10 14:36] LABS: Topiramate (Topamax) Test 13.4 ug/mL (2.0-25.0)
[2020-05-18 13:14] LABS: CA Oxalate Monohydrate 65 % (.); Color Brown (.); Stone Weight 28 mg (.)
== END 2020-05-09 11:53 | disposition home or self-care (01) | DRG 660 ==
LOC: SDC 06:13 → IMCU/EMU 15:13 → 2SE 05-07 10:37
PROVIDERS: ADMIT Internal Medicine; ATTEND Urology
PROC: 0T788DZ Dilation of Bilateral Ureters with Intraluminal Device, Via Natural or Artificial Opening Endoscopic (ICD-10-PCS; principal; 2020-05-06)
PROC: 0TC78ZZ Extirpation of Matter from Left Ureter, Via Natural or Artificial Opening Endoscopic (ICD-10-PCS; 2020-05-06)
PROC: 0TC68ZZ Extirpation of Matter from Right Ureter, Via Natural or Artificial Opening Endoscopic (ICD-10-PCS; 2020-05-06)
DX: N20.0 Calculus of kidney (principal); G40.509 Epileptic seizures related to external causes, not intractable, without status epilepticus; N13.30 Unspecified hydronephrosis; N20.1 Calculus of ureter; E03.9 Hypothyroidism, unspecified; M79.7 Fibromyalgia; G89.29 Other chronic pain; I95.89 Other hypotension; R33.9 Retention of urine, unspecified; D52.9 Folate deficiency anemia, unspecified; G43.909 Migraine, unspecified, not intractable, without status migrainosus; M43.16 Spondylolisthesis, lumbar region; Z88.0 Allergy status to penicillin; Z88.2 Allergy status to sulfonamides; Z88.8 Allergy status to other drugs, medicaments and biological substances; Z88.6 Allergy status to analgesic agent; Z88.1 Allergy status to other antibiotic agents; Z91.040 Latex allergy status; Z90.49 Acquired absence of other specified parts of digestive tract; Z90.710 Acquired absence of both cervix and uterus; Z98.51 Tubal ligation status; Z98.1 Arthrodesis status; Z01.812 Encounter for preprocedural laboratory examination; Z11.59 Encounter for screening for other viral diseases
CPT/HCPCS: 36415; 36416; 36600; 74420; 80048; 80053; 80201; 80306; 80339; 81001; 82365; 83735; 84443; 84703; 85025; 85027; 85610; 85730; 87086; 87635; 88300; G0480; J1650; J1885; J1956; J2250; J2405; J2704; J2765; J3010; J3475; Q0163; U0003

== ENCOUNTER 2020-10-16 18:29 | Emergency (ER) | payer MEDICARE ==
[2020-10-16 19:23] LABS: #Basophils 0.1 thou/uL (0.0-0.2); #Eosinphils 0.3 thou/uL (0.0-0.7); #Lymphocytes 1.7 thou/uL (1.20-3.40); #Monocytes 0.9 thou/uL (0.11-0.59); #Neutrophils 5.8 thou/uL (1.40-6.50); %Basophils 0.7 % (0.0-1.0); %Lymphocytes 19.3 % (21.0-51.0); %Monocytes 10.3 % (0.0-10.0); %Neutrophils 66.7 % (42.0-75.0); Hemoglobin 12.6 g/dL (12.0-16.0); Mean Corpuscular HGB CONC 33.4 g/dL (32.0-36.0); Mean Corpuscular Hemoglobin 30.3 pg (27.0-31.0); Mean Corpuscular Volume 90.8 fL (78.0-98.0); Mean Platelet Volume 7.4 fL (7.4-10.4); Platelet Count 276 thou/uL (130-400); RBC Distribution Width 12.3 % (11.5-14.5); Red Blood Cell (RBC) Count 4.15 mill/uL (4.20-5.40); White Blood Cell (WBC) Count 8.7 thou/uL (4.8-10.8)
[2020-10-16 19:24] LABS: BHCG - Serum Negative (NEGATIVE); Pregs Control Background? CLEAR/WHITE (CLR/WHITE); Pregs Control Bar Appear? YES (CONTROL BAR)
[2020-10-16] MEDS ORDERED: Cyclobenzaprine 10 MG TAB ONE ×2 (19:24→19:25)
[2020-10-16] MEDS ORDERED: Ketorolac Tromethamine 30 MG/ML VIAL ONE (19:37)
[2020-10-16 19:38] LABS: ALT (SGPT) 20 U/L (8-55); AST (SGOT) 21 U/L (5-34); Albumin 3.7 g/dL (3.5-5.0); Alkaline Phosphatase 55 U/L (40-110); Anion Gap 11 mmol/L (10-20); BUN (Urea Nitrogen) 14 mg/dL (7.0-18.7); Bilirubin, Total 0.2 mg/dL (0.2-1.2); CK (CPK) 69 U/L (29-168); Calc. Creatinine Clearance 0 mL/min (70-130); Calcium 9.2 mg/dL (7.8-10.44); Carbon Dioxide 22 mmol/L (22-29); Chloride 107 mmol/L (98-107); Globulin 3.3 g/dL (2.4-3.5); Glucose 99 mg/dL (70-105); Potassium 3.9 mmol/L (3.5-5.1); Sodium 136 mmol/L (136-145)
[2020-10-16 21:06] LABS: Bilirubin Negative (Negative); Blood, Urine Negative (Negative); Clarity Clear (Clear); Glucose, Urine (Dipstick) Normal (Negative); Ketone, Urine Negative (Negative); Leukocyte Negative Leu/uL (Negative); Nitrite Negative (Negative); Protein, Urine (Dipstick) Negative (Neg-Trace); Specific Gravity, Urine 1.016 (1.002-1.036); Urobilinogen Normal mg/dL (Less than 2); pH, Urine 6.5 (5.0-9.0)
== END 2020-10-16 21:38 | disposition home or self-care (01) ==
LOC: ERS 18:29
DX: M54.16 Radiculopathy, lumbar region (principal); E03.9 Hypothyroidism, unspecified; Z79.899 Other long term (current) drug therapy
CPT/HCPCS: 36415; 80053; 81003; 82550; 83605; 84703; 85025; 86140; 96374; J1885

== ENCOUNTER 2021-01-06 11:20 | Outpatient (CLI) | payer MEDICARE | END 2021-01-06 11:21 | disposition home or self-care (01) | LOC: BICRAD 11:20 | PROVIDERS: ATTEND Nurse Practitioner Family | DX: M54.2 Cervicalgia (principal) | CPT/HCPCS: 72050 ==

== ENCOUNTER 2021-01-19 19:30 | Outpatient (CLI) | payer MEDICARE | END 2021-01-19 19:31 | disposition home or self-care (01) | LOC: SLEEPLAB 19:30 | PROVIDERS: ATTEND Internal Medicine | DX: G47.33 Obstructive sleep apnea (adult) (pediatric) (principal); R53.83 Other fatigue; G47.00 Insomnia, unspecified; G47.11 Idiopathic hypersomnia with long sleep time | CPT/HCPCS: 95810 ==

== ENCOUNTER 2021-05-18 19:30 | Outpatient (CLI) | payer MEDICARE | END 2021-05-18 19:31 | disposition home or self-care (01) | LOC: SLEEPLAB 19:30 | PROVIDERS: ATTEND Internal Medicine Critical Care Medicine | DX: G47.419 Narcolepsy without cataplexy (principal); R53.83 Other fatigue; R06.83 Snoring; G47.10 Hypersomnia, unspecified; G89.29 Other chronic pain; G47.411 Narcolepsy with cataplexy; G47.53 Recurrent isolated sleep paralysis; M79.7 Fibromyalgia; R56.9 Unspecified convulsions; G47.11 Idiopathic hypersomnia with long sleep time | CPT/HCPCS: 95810 ==

== ENCOUNTER 2021-09-14 07:59 | Outpatient (CLI) | payer MEDICARE ==
[2021-09-14] MEDS ORDERED: Magnevist 469MG/ML 20 ML VIAL ONE ×2 (10:42)
== END 2021-09-14 08:00 | disposition home or self-care (01) ==
LOC: MRI 07:59
PROVIDERS: ATTEND Specialist
DX: M51.14 Intervertebral disc disorders with radiculopathy, thoracic region (principal); M54.16 Radiculopathy, lumbar region; Z98.890 Other specified postprocedural states
CPT/HCPCS: 72157; 72158; A9579

== ENCOUNTER 2021-09-26 10:11 | Outpatient (CLI) | payer MEDICARE ==
[2021-09-26 21:58] LABS: SARS-CoV-2 PCR by NAA Not Detected (NotDetected)
== END 2021-09-26 10:12 | disposition home or self-care (01) ==
LOC: LABBT 10:11
PROVIDERS: ATTEND Specialist
DX: Z01.812 Encounter for preprocedural laboratory examination (principal); Z20.822 Contact with and (suspected) exposure to COVID-19
CPT/HCPCS: U0003; U0005

== ENCOUNTER 2021-09-29 10:23 | Day surgery (SDC) | payer MEDICARE ==
[2021-09-23 11:56] VITALS: BMI 26.4
[2021-09-29] MEDS ORDERED: PROPOFOL 200 MG/20 ML VIAL ONE (12:41)
[2021-09-29] MEDS ORDERED: Ondansetron PF 4 MG/2 ML Vial ONE ×2 (12:41→15:06)
== END 2021-09-29 16:41 | disposition home or self-care (01) ==
LOC: SDC 10:23
PROVIDERS: ATTEND Specialist
PROC: 00PU3MZ Removal of Neurostimulator Lead from Spinal Canal, Percutaneous Approach (ICD-10-PCS; principal; 2021-09-29)
PROC: 00HU3MZ Insertion of Neurostimulator Lead into Spinal Canal, Percutaneous Approach (ICD-10-PCS; 2021-09-29)
PROC: 0JWT0MZ Revision of Stimulator Generator in Trunk Subcutaneous Tissue and Fascia, Open Approach (ICD-10-PCS; 2021-09-29)
DX: G89.4 Chronic pain syndrome (principal); M96.1 Postlaminectomy syndrome, not elsewhere classified; M54.16 Radiculopathy, lumbar region; G90.523 Complex regional pain syndrome I of lower limb, bilateral; Z79.899 Other long term (current) drug therapy; Z88.0 Allergy status to penicillin; Z88.1 Allergy status to other antibiotic agents; Z88.2 Allergy status to sulfonamides; Z88.5 Allergy status to narcotic agent; Z88.8 Allergy status to other drugs, medicaments and biological substances; Z91.040 Latex allergy status
CPT/HCPCS: 72020; 76000; C1713; C1778; C1787; C1820; J2405; J2704; L8689

== ENCOUNTER 2022-03-29 08:52 | Outpatient (CLI) | payer MEDICARE | END 2022-03-29 08:53 | disposition home or self-care (01) | LOC: BICMRI 08:52 | PROVIDERS: ATTEND Nurse Practitioner Family | DX: M47.22 Other spondylosis with radiculopathy, cervical region (principal); M48.02 Spinal stenosis, cervical region; E03.9 Hypothyroidism, unspecified; E78.5 Hyperlipidemia, unspecified | CPT/HCPCS: 36415; 72050; 72141; 80061; 84439; 84443 ==

== ENCOUNTER 2023-04-25 14:45 | Emergency (ER) | payer MEDICARE ==
[2023-04-25] MEDS ORDERED: Metoclopramide HCl 10 MG/2 ML VIAL ONE (15:02)
[2023-04-25] MEDS ORDERED: Ketorolac Tromethamine 30 MG/ML VIAL ONE (15:02)
[2023-04-25] MEDS ORDERED: Acetaminophen 500 MG TAB ONE (15:02)
[2023-04-25 15:10] LABS: #Basophils 0.1 thou/uL (0.0-0.2); #Eosinphils 0.2 thou/uL (0.0-0.7); #Monocytes 0.5 thou/uL (0.11-0.59); #Neutrophils 3.6 thou/uL (1.40-6.50); %Basophils 1.3 % (0.0-1.0); %Eosinophils 2.9 % (0.0-10.0); %Lymphocytes 28.9 % (21.0-51.0); %Monocytes 8.5 % (0.0-10.0); %Neutrophils 58.1 % (42.0-75.0); Hematocrit 38.7 % (36.0-47.0); Hemoglobin 12.6 g/dL (12.0-16.0); Mean Corpuscular HGB CONC 32.6 g/dL (32.0-36.0); Mean Corpuscular Hemoglobin 30.8 pg (27.0-31.0); Mean Corpuscular Volume 94.6 fl (78.0-98.0); Mean Platelet Volume 10.3 fL (7.4-10.4); Platelet Count 270 10x3/uL (130-400); RBC Distribution Width 12.5 % (11.5-14.5); Red Blood Cell (RBC) Count 4.09 mill/uL (4.20-5.40); White Blood Cell (WBC) Count 6.2 10x3/uL (4.8-10.8)
[2023-04-25 15:15] LABS: BHCG - Serum Negative (NEGATIVE); Pregs Control Background? CLEAR/WHITE (CLR/WHITE); Pregs Control Bar Appear? YES (CONTROL BAR)
[2023-04-25 15:45] LABS: ALT (SGPT) 12 U/L (8-55); AST (SGOT) 18 U/L (5-34); Alkaline Phosphatase 39 U/L (40-110); Anion Gap 13 mmol/L (10-20); BUN (Urea Nitrogen) 11 mg/dL (7.0-18.7); Bilirubin, Total 0.4 mg/dL (0.2-1.2); Calc. Creatinine Clearance 0 mL/min (70-130); Calcium 9.1 mg/dL (7.8-10.44); Carbon Dioxide 21 mmol/L (22-29); Chloride 111 mmol/L (98-107); Estimated GFR 96; Glucose 85 mg/dL (70-105); Potassium 3.8 mmol/L (3.5-5.1); Sodium 141 mmol/L (136-145)
== END 2023-04-25 16:20 | disposition home or self-care (01) ==
LOC: ERS 14:45
DX: R56.9 Unspecified convulsions (principal); E03.9 Hypothyroidism, unspecified; I10 Essential (primary) hypertension
CPT/HCPCS: 36415; 80053; 84703; 85025; 93005; 96374; J1885; J2765

== ENCOUNTER 2023-05-09 09:58 | Outpatient (CLI) | payer MEDICARE | END 2023-05-09 09:59 | disposition home or self-care (01) | LOC: MRI 09:58 | PROVIDERS: ATTEND Specialist | DX: M84.48XA Pathological fracture, other site, initial encounter for fracture (principal) | CPT/HCPCS: 72195 ==

== ENCOUNTER 2024-04-04 08:51 | Outpatient (CLI) | payer MEDICARE | END 2024-04-04 08:52 | disposition home or self-care (01) | LOC: SCSMRI 08:51 | PROVIDERS: ATTEND Specialist | DX: G35 Multiple sclerosis (principal) | CPT/HCPCS: 70553; 72141; 72157 ==

== ENCOUNTER 2025-05-14 19:22 | Emergency (ER) | payer MEDICARE ==
[2025-05-14 20:12] LABS: #Basophils 0.06 10x3/uL (0.0-0.2); #Eosinophils 0.19 10x3/uL (0.0-0.7); #Monocytes 0.55 10x3/uL (0.11-0.59); #Neutrophils 3.55 10x3/uL (1.40-6.50); %Basophils 1.0 % (0.0-1.0); %Eosinophils 3.1 % (0.0-10.0); %Lymphocytes 29.1 % (21.0-51.0); %Monocytes 8.9 % (0.0-10.0); %Neutrophils 57.6 % (42.0-75.0); Hematocrit 37.1 % (36.0-47.0); Hemoglobin 12.0 g/dL (12.0-16.0); Mean Corpuscular Hemoglobin 29.4 pg (27.0-31.0); Mean Corpuscular Volume 90.9 fL (78.0-98.0); Platelet Count 273 10x3/uL (130-400); Red Blood Cell (RBC) Count 4.08 mill/uL (4.20-5.40); White Blood Cell (WBC) Count 6.16 10x3/uL (4.8-10.8)
[2025-05-14 20:28] LABS: ALT (SGPT) 14 U/L (Less than 34); AST (SGOT) 21 U/L (11-34); Albumin 4.1 g/dL (3.1-4.5); Alkaline Phosphatase 37 U/L (40-110); Anion Gap 9 mmol/L (10-20); BUN (Urea Nitrogen) 20 mg/dL (7.0-18.7); Bilirubin, Total 0.2 mg/dL (0.3-1.2); Calc. Creatinine Clearance 0 mL/min (70-130); Calcium 9.2 mg/dL (7.8-10.44); Carbon Dioxide 21 mmol/L (22-29); Chloride 113 mmol/L (98-107); Globulin 2.9 g/dL (2.4-3.5); Glucose 81 mg/dL (70-105); Potassium 3.8 mmol/L (3.5-5.1); Sodium 139 mmol/L (136-145)
== END 2025-05-14 21:22 | disposition home or self-care (01) ==
LOC: ERS 19:22
DX: M79.601 Pain in right arm (principal); N20.0 Calculus of kidney; R59.1 Generalized enlarged lymph nodes
CPT/HCPCS: 36415; 71045; 71275; 80053; 81001; 84484; 85025; 85379; 86141; 93005